=== PATIENT | male | born 1935 | race Caucasian/White ===

== ENCOUNTER 2016-11-04 23:11 | Emergency (ER) | payer MEDICARE, OTHER ==
[2016-11-04] MEDS ORDERED: Sodium Polystyrene Sulfonate 15 GM/60 ML Susp 473 ML Bottle PO ONE (23:33)
[2016-11-04] MEDS: Sodium Polystyrene Sulfonate 15 GM/60 ML Susp 60 ML Bot ONE ×2 (23:52→23:55)
--- NOTE | 2016-11-05 00:15 | EDM.PDOC ---
ED HPI GENERAL MEDICAL PROBLEM - General Chief Complaint: General Stated Complaint: HIGH POTASSUIM Time Seen by Provider: 11/04/16 23:55 Source of Information: Reports: Patient History Limitations: Reports: No limitations - History of Present Illness INITIAL COMMENTS - FREE TEXT/NARRATIVE: 81 yo male had a potassium check in the clinic yesterday afternoon(). Tonight at 10:30 pm Luther got a call from one of the [facility] telling him his K was 6.2 and that he needed to go into the ER to be checked. He has no complaints at this time. 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: Reports: Other (see below) (none) - Related Data Allergies Allergy/AdvReac Type Severity Reaction Status Date / Time No Known Allergies Allergy Verified 11/04/16 23:25 Home Meds: Home Meds Albuterol Sulfate [Proair Hfa] 2 puff IH Q6H PRN 08/16/14 [History] Budesonide [Pulmicort] 0.5 mg IH BID 08/16/14 [History] Calcium Carbonate/Vitamin D3 [Calcium 600 + Vit D Tablet] 1 tab PO DAILY [History] Dutasteride [Avodart] 0.5 mg PO BEDTIME 08/16/14 [History] Ferrous Sulfate 324 mg PO BIDM 08/16/14 [History] Lisinopril 2.5 mg PO BEDTIME 08/16/14 [History] Multivitamin [Multivitamins] 1 cap PO DAILY 08/16/14 [History] Nitroglycerin [Nitrolingual] 1 spray SL ASDIRECTED PRN 08/16/14 [History] Omeprazole [Prilosec] 20 mg PO DAILY PRN 08/16/14 [History] Sertraline HCl [Zoloft] 50 mg PO DAILY 08/16/14 [History] Simvastatin [Zocor] 40 mg PO BEDTIME 08/16/14 [History] Spironolactone [Aldactone] 12.5 mg PO DAILY 08/16/14 [History] Tamsulosin [Flomax] 0.4 mg PO BEDTIME 08/16/14 [History] Ubidecarenone [Coenzyme Q10] 200 mg PO DAILY 08/16/14 [History] Albuterol/Ipratropium [DuoNeb 3.0-0.5 MG/3 ML] 3 ml INH QID PRN 08/03/15 [ History] Aspirin 81 mg PO DAILY 08/03/15 [History] [place] 3,900 mg PO DAILY 09/06/16 [History] Docusate Sodium [Colace] 100 mg PO DAILY PRN 09/06/16 [History] Formoterol [Perforomist] 1 vial NEB BID 09/06/16 [History] Hydrocodone/Acetaminophen [[place] 10-325 Tablet] 0.5 each PO Q6H PRN 09/06/16 [ History] L.acidoph,Paracasei, B.lactis [Probiotic] 1 each PO DAILY 09/06/16 [History] Psyllium [Metamucil] 1 gm PO DAILY PRN 09/06/16 [History] Sertraline [Zoloft] 100 mg PO BEDTIME 09/06/16 [History] Tiotropium [Spiriva Handihaler] 1 cap INH DAILY 09/06/16 [History] ALPRAZolam [Xanax] 0.25 mg PO TID PRN 09/07/16 [History] Multivit-Min/FA/Lutein/Zeaxant [Macular Vitamin Tablet] 1 each PO DAILY [History] Torsemide 20 mg PO BEDTIME 09/07/16 [History] Torsemide 40 mg PO DAILY 09/07/16 [History] Past Medical History HEENT History: Reports: Impaired vision, Macular degeneration Other HEENT History: recent nose bleeds with cautery Cardiovascular History: Reports: Afib, Bypass, CAD, Cardiomyopathy, Heart Failure, Heart murmur, Pulmonary hypertension Respiratory History: Reports: Asthma, COPD, Pneumonia, recurrent Other Respiratory History: Is on O2 @ 2.5L/NC Gastrointestinal History: Reports: Chronic constipation Genitourinary History: Reports: BPH Musculoskeletal History: Reports: Back pain, chronic Psychiatric History: Reports: Anxiety Hematologic History: Reports: Blood transfusion(s) - Infectious Disease History Infectious Disease History: Reports: Chicken pox, Measles, Mumps - Past Surgical History HEENT Surgical History: Reports: Cataract surgery Other HEENT Surgeries/Procedures: bilat cataract Cardiovascular Surgical History: Reports: Coronary artery bypass, Coronary artery stent GI Surgical History: Reports: Appendectomy, Cholecystectomy, Hernia repair/other Musculoskeletal Surgical History: Reports: Other (see below) Other Musculoskeletal Surgeries/Procedures:: back surg x3 Social & Family History - Family History Family Medical History: Noncontributory - Tobacco Use Smoking Status *Q: Never Smoker Years of Tobacco use: 40 Used Tobacco, but Quit: Yes Month Tobacco Last Used: 16yrs ago Second Hand Smoke Exposure: No - Caffeine Use Caffeine Use: Reports: Coffee Caffeine Use Comment: 1-2 cups of coffee daily - Alcohol Use Days Per Week of Alcohol Use: 0 - Recreational Drug Use Recreational Drug Use: No ED ROS GENERAL - Review of Systems Review Of Systems: See Below Cardiovascular: Reports: No symptoms Neurological: Reports: No Symptoms ED EXAM, GENERAL - Physical Exam Exam: See Below Exam Limited By: No limitations General Appearance: alert, WD/WN, no apparent distress Cardiovascular: regular rate, rhythm Neurological: alert, oriented, CN II-XII intact, normal cognition, no motor/ sensory deficits Psychiatric: normal affect, normal mood Skin Exam: Warm, Dry, Intact Course - Vital Signs Text/Narrative:: Kayexalate 30 gm po Last Recorded V/S: Last Vital Signs Temp 36.7 C 11/04/16 23:15 Pulse 70 11/04/16 23:15 Resp 20 11/04/16 23:15 BP 127/65 11/04/16 23:15 Pulse Ox 97 11/04/16 23:15 - Orders/Labs/Meds Labs: Laboratory Tests 11/04/16 Range/Units 23:45 Potassium 4.5 (3.5-5.3) mmol/L Meds: Medications Discontinued Medications Generic Name Dose Route Start Last Admin Trade Name Freq PRN Reason Stop Dose Admin Sodium Polystyrene Sulfonate 30 gm 11/04/16 23:33 11/04/16 23:56 Kayexalate PO 11/04/16 23:34 Not Given NOW ONE Sodium Polystyrene Sulfonate Confirm 11/04/16 23:45 11/04/16 23:55 Kayexalate Administered 11/04/16 23:46 30 gm Dose Administration 30 gm .ROUTE .STK-MED ONE Departure - Departure Time of Disposition: 00:13 Disposition: Home, Self-Care 01 Condition: good Clinical Impression: Laboratory test Referrals: Barbara Schaffer INVESTIGATION SPECIALIST [Primary Care Provider] - Forms: ED Department Discharge Additional Instructions: Resume your usual medications as before. Recheck in the clinic as directed.
[2016-11-05 00:30] VITALS: BP 126/79
== END 2016-11-05 00:25 | disposition home or self-care (01) ==
LOC: FB.ED 23:11
DX: Z04.9 Encounter for examination and observation for unspecified reason (principal)
CPT/HCPCS: 36415; 84132; 99283; A9270

== ENCOUNTER 2017-01-04 20:28 | Inpatient (IN) | payer MEDICARE, OTHER ==
[2017-01-04] MEDS ORDERED: methylPREDNISolone Sodium Succinate 125 MG/2 ML SDV IVPUSH ONE (20:51)
[2017-01-04] MEDS: Sodium Chloride 0.9% 10 ML Syringe FLUSH PRN (20:51)
[2017-01-04] MEDS ORDERED: Albuterol/Ipratropium 3.0-0.5 MG/3 ML Neb Soln NEB ONE (21:18)
--- NOTE | 2017-01-04 21:39 | EDM.PDOC ---
ED HPI GENERAL MEDICAL PROBLEM - General Chief Complaint: Respiratory Problem Stated Complaint: COPD Time Seen by Provider: 01/04/17 20:43 Source of Information: Reports: Patient, Family History Limitations: Reports: Respiratory Distress - History of Present Illness INITIAL COMMENTS - FREE TEXT/NARRATIVE: 81 y.o.w.m.with h/o COPD came to the ED due to worsening SOB. Pt was seen in the clinic for same. Pt quit smoking 17 years ago. has chronic legedema. no F/C/ N/V/D, no chest pain. Pt is a poor historian. Onset: Gradual Onset Date: 01/02/17 Onset Time: 08:00 Duration: Day(s): Location: Reports: Chest Severity: Moderate Improves with: Reports: Medication Worsens with: Reports: Movement - Related Data Allergies Allergy/AdvReac Type Severity Reaction Status Date / Time No Known Allergies Allergy Verified 01/04/17 20:42 Home Meds: Home Meds Albuterol Sulfate [Proair Hfa] 2 puff IH Q6H PRN 08/16/14 [History] Budesonide [Pulmicort] 0.5 mg IH BID 08/16/14 [History] Calcium Carbonate/Vitamin D3 [Calcium 600 + Vit D Tablet] 1 tab PO DAILY [History] Dutasteride [Avodart] 0.5 mg PO BEDTIME 08/16/14 [History] Ferrous Sulfate 324 mg PO BIDM 08/16/14 [History] Multivitamin [Multivitamins] 1 cap PO DAILY 08/16/14 [History] Nitroglycerin [Nitrolingual] 1 spray SL Q5M PRN 08/16/14 [History] Omeprazole [Prilosec] 20 mg PO DAILY PRN 08/16/14 [History] Simvastatin [Zocor] 40 mg PO BEDTIME 08/16/14 [History] Spironolactone [Aldactone] 12.5 mg PO DAILY 08/16/14 [History] Tamsulosin [Flomax] 0.4 mg PO BEDTIME 08/16/14 [History] Aspirin 81 mg PO DAILY 08/03/15 [History] Formoterol [Perforomist] 1 vial NEB BID 09/06/16 [History] Hydrocodone/Acetaminophen [[place] 10-325 Tablet] 0.5 each PO Q6H PRN 09/06/16 [ History] L.acidoph,Paracasei, B.lactis [Probiotic] 1 each PO DAILY 09/06/16 [History] Sertraline [Zoloft] 100 mg PO BID 09/06/16 [History] Tiotropium [Spiriva Handihaler] 1 cap INH DAILY 09/06/16 [History] ALPRAZolam [Xanax] 0.125 mg PO TID PRN 09/07/16 [History] Torsemide 40 mg PO DAILY 09/07/16 [History] Cefuroxime [Ceftin] 500 mg PO Q12HR 01/04/17 [History] Warfarin Sodium 2 mg PO MOFR 01/04/17 [History] Warfarin Sodium 4 mg PO SUTUWETHSA 01/04/17 [History] Polyethylene Glycol 3350 [MiraLAX] 17 gm PO DAILY 01/05/17 [History] Past Medical History HEENT History: Reports: Impaired Vision, Macular Degeneration Other HEENT History: recent nose bleeds with cautery Cardiovascular History: Reports: Afib, Bypass, CAD, Cardiomyopathy, Heart Failure, Heart Murmur, Pulmonary Hypertension Respiratory History: Reports: Asthma, COPD, Pneumonia, Recurrent Other Respiratory History: Is on O2 @ 2.5L/NC Gastrointestinal History: Reports: Chronic Constipation Genitourinary History: Reports: BPH Musculoskeletal History: Reports: Back Pain, Chronic Psychiatric History: Reports: Anxiety Hematologic History: Reports: Blood Transfusion(s) - Infectious Disease History Infectious Disease History: Reports: Chicken Pox, Measles, Mumps - Past Surgical History HEENT Surgical History: Reports: Cataract Surgery Cardiovascular Surgical History: Reports: Coronary Artery Bypass, Coronary Artery Stent GI Surgical History: Reports: Appendectomy, Cholecystectomy, Hernia Repair/Other Musculoskeletal Surgical History: Reports: Other (See Below) Social & Family History - Family History Family Medical History: Noncontributory - Tobacco Use Smoking Status *Q: Former Smoker Years of Tobacco use: 40 Used Tobacco, but Quit: Yes Month Tobacco Last Used: 20 years ago Second Hand Smoke Exposure: No - Caffeine Use Caffeine Use: Reports: Coffee, Soda, Tea Caffeine Use Comment: 1-2 cups of coffee daily - Alcohol Use Days Per Week of Alcohol Use: 0 - Recreational Drug Use Recreational Drug Use: No ED ROS GENERAL - Review of Systems Review Of Systems: See Below Constitutional: Reports: Weight Loss HEENT: Reports: No Symptoms Respiratory: Reports: Shortness of Breath Cardiovascular: Reports: Dyspnea on Exertion, Orthopnea Endocrine: Reports: No Symptoms GI/Abdominal: Reports: No Symptoms : Reports: No Symptoms Musculoskeletal: Reports: No Symptoms Skin: Reports: No Symptoms Neurological: Reports: No Symptoms Psychiatric: Reports: No Symptoms Hematologic/Lymphatic: Reports: No Symptoms Immunologic: Reports: No Symptoms ED EXAM, GENERAL - Physical Exam Exam: See Below Exam Limited By: Respiratory Distress General Appearance: Alert, Moderate Distress, Cachetic Eye Exam: Bilateral Eye: Normal Inspection Nose: Normal Inspection, Normal Mucosa Throat/Mouth: Normal Inspection Head: Atraumatic, Normocephalic Neck: Normal Inspection Respiratory/Chest: Respiratory Distress, Decreased Breath Sounds, Crackles, Rales, Wheezing, Accessory Muscle Use Cardiovascular: JVD, Gallop/S3 Peripheral Pulses: 1+: Radial (R), Femoral (L) GI/Abdominal: Normal Bowel Sounds, Distended (chronic) (Male) Exam: No Hernia Rectal (Males) Exam: Deferred Back Exam: Normal Inspection, Full Range of Motion Extremities: Pedal Edema (chronic, bilat) Neurological: Alert, Oriented, CN II-XII Intact, Normal Cognition Psychiatric: Normal Affect, Normal Mood Skin Exam: Pallor Lymphatic: No Adenopathy EKG INTERPRETATION EKG Date: 01/04/17 Time: 20:55 Rate (beats/min): 89 [place]: normal P-wave: absent QRS: normal ST-T: normal QT: normal Comparison: NA - no prior EKG Course - Vital Signs Text/Narrative:: 81 y.o.w.m.with h/o COPD came to the ED due to worsening SOB. Pt was seen in the clinic for same. Pt quit smoking 17 years ago. has chronic legedema. no F/C/ N/V/D, no chest pain. Pt is a poor historian. PE: Cachectic 81 y.o.w.m with SOB. Crackles, poor air movement ImagingL Pulm edema, atelectasis, COPD Labs: WBC 3.4 INR 3.0 (pt is on coumadin) Troponin 0.07, BNP 345, Impression: COPD exacerbation, CHF/Pulmonary edema, atelectasis, A fib wit NVR. Full code Tx: Duoneb, solu medrol, lasix Reexam: Improved Plan: admit to ICU to Dr. Lee Last Recorded V/S: Last Vital Signs Temp 36.3 C 01/07/17 16:00 Pulse 73 01/07/17 17:48 Resp 20 01/07/17 16:00 BP 109/66 01/07/17 17:48 Pulse Ox 92 L 01/07/17 16:00 - Orders/Labs/Meds Orders: Medication Orders Albuterol (Proventil Neb Soln) 2.5 mg NEB QIDRT [facility] Last Admin: 01/07/17 15:10 Dose: 2.5 mg Admin: 01/07/17 10:52 Dose: 2.5 mg Admin: 01/07/17 07:05 Dose: 2.5 mg Admin: 01/06/17 20:03 Dose: 2.5 mg Admin: 01/06/17 15:06 Dose: 2.5 mg Admin: 01/06/17 10:48 Dose: 2.5 mg Admin: 01/06/17 06:29 Dose: 2.5 mg Admin: 01/05/17 20:37 Dose: 2.5 mg Admin: 01/05/17 15:12 Dose: 2.5 mg Albuterol (Proventil Neb Soln) 2.5 mg NEB Q4H PRN PRN Reason: wheezing or SOB Alprazolam (Xanax) 0.25 mg PO TID PRN PRN Reason: Anxiety Aspirin (Aspirin) 81 mg PO DAILY [facility] Last Admin: 01/07/17 08:35 Dose: 81 mg Admin: 01/06/17 08:44 Dose: 81 mg Admin: 01/05/17 10:49 Dose: 81 mg Budesonide (Pulmicort) 0.5 mg INH BIDRT [facility] Last Admin: 01/07/17 07:05 Dose: 0.5 mg Admin: 01/06/17 20:05 Dose: 0.5 mg Admin: 01/06/17 06:29 Dose: 0.5 mg Admin: 01/05/17 20:36 Dose: 0.5 mg Admin: 01/05/17 11:02 Dose: 0.5 mg Carvedilol (Coreg) 3.125 mg PO BIDMEALS [facility] Last Admin: 01/07/17 17:48 Dose: 3.125 mg Admin: 01/07/17 09:15 Dose: 3.125 mg Dutasteride (Avodart) 0.5 mg PO BEDTIME [facility] Last Admin: 01/06/17 20:07 Dose: 0.5 mg Admin: 01/05/17 20:35 Dose: 0.5 mg Ferrous Sulfate (Ferrous Sulfate) 325 mg PO BIDMEALS [facility] Last Admin: 01/07/17 17:48 Dose: 325 mg Admin: 01/07/17 08:34 Dose: 325 mg Admin: 01/06/17 17:34 Dose: 325 mg Admin: 01/06/17 08:44 Dose: 325 mg Admin: 01/05/17 17:52 Dose: 325 mg Admin: 01/05/17 10:51 Dose: 325 mg Furosemide (Lasix) 40 mg IVPUSH DAILY [facility] Last Admin: 01/07/17 09:19 Dose: 40 mg Sodium Chloride (Normal Saline) 250 mls @ 100 mls/hr IV ASDIRECTED [facility] Last Admin: 01/07/17 10:10 Dose: 100 mls/hr Levofloxacin/Dextrose (Levaquin In D5w 250 Mg/50 Ml) 50 mls @ 50 mls/hr IV Q24H [facility] Sodium Chloride (Normal Saline) 1,000 mls @ 50 mls/hr IV ASDIRECTED [facility] Last Admin: 01/07/17 17:30 Dose: 50 mls/hr Methylprednisolone Sodium Succinate (Solu-Medrol) 40 mg IVPUSH Q8H [facility] Last Admin: 01/07/17 16:33 Dose: 40 mg Admin: 01/07/17 09:15 Dose: 40 mg Omeprazole (Omeprazole) 20 mg PO DAILY PRN PRN Reason: Heartburn Polyethylene Glycol (Miralax) 17 gm PO DAILY [facility] Sertraline HCl (Zoloft) 100 mg PO BID [facility] Last Admin: 01/07/17 08:37 Dose: 100 mg Admin: 01/06/17 20:08 Dose: 100 mg Admin: 01/06/17 08:44 Dose: 100 mg Admin: 01/05/17 20:37 Dose: 100 mg Admin: 01/05/17 10:51 Dose: 100 mg Simvastatin (Zocor) 40 mg PO BEDTIME [facility] Last Admin: 01/06/17 20:08 Dose: 40 mg Admin: 01/05/17 20:36 Dose: 40 mg Sodium Chloride (Saline Flush) 10 ml FLUSH ASDIRECTED PRN PRN Reason: Keep Vein Open Last Admin: 01/07/17 09:19 Dose: 10 ml Admin: 01/06/17 16:16 Dose: 10 ml Admin: 01/06/17 05:16 Dose: 10 ml Admin: 01/05/17 17:59 Dose: 10 ml Admin: 01/05/17 13:53 Dose: 10 ml Admin: 01/05/17 08:29 Dose: 10 ml Admin: 01/05/17 00:03 Dose: 10 ml Admin: 01/04/17 20:51 Dose: 10 ml Sodium Chloride (Saline Flush) 10 ml FLUSH ASDIRECTED PRN PRN Reason: Keep Vein Open Spironolactone (Aldactone) 12.5 mg PO DAILY [facility] Last Admin: 01/07/17 08:34 Dose: 12.5 mg Admin: 01/06/17 08:44 Dose: 12.5 mg Admin: 01/05/17 10:49 Dose: 12.5 mg Tamsulosin HCl (Flomax) 0.4 mg PO BEDTIME [facility] Last Admin: 01/06/17 20:07 Dose: 0.4 mg Admin: 01/05/17 20:35 Dose: 0.4 mg Tiotropium [place] (Spiriva Handihaler) 18 mcg INH DAILY [facility] Last Admin: 01/07/17 08:35 Dose: 1 cap Admin: 01/06/17 08:44 Dose: 1 cap Admin: 01/05/17 10:52 Dose: 1 cap Warfarin Sodium (Coumadin) 2 mg PO MoFr@1600 [facility] Warfarin Sodium (Coumadin Sliding Scale) 0 each PO ASDIRECTED [facility] Warfarin Sodium (Coumadin) 4 mg PO SuTuWeThSa@1600 [facility] Labs: Laboratory Tests 01/04/17 01/04/17 01/04/17 Range/Units 21:05 21:05 21:05 WBC 4.8 (4.5-12.0) X10-3/uL RBC 3.10 L (4.30-5.75) x10(6)uL Hgb 10.1 L (11.5-15.5) g/dL Hct 31.0 (30.0-51.3) % MCV 99.9 H (80-96) fL MCH 32.6 (27.7-33.6) pg MCHC 32.6 (32.2-35.4) g/dL RDW 14.4 (11.5-15.5) % Plt Count 78 L (125-369) X10(3)uL MPV 8.0 (7.4-10.4) fL Add Manual Diff Yes Neutrophils % (Manual) 83 H (46-82) % Band Neutrophils % 2 (0-6) % Lymphocytes % (Manual) 6 L (13-37) % Monocytes % (Manual) 9 (4-12) % PT 31.3 H (8.7-11.1) INR 3.03 H (0.89-1.13) Sodium 134 L (135-145) mmol/L Potassium 3.2 L D (3.5-5.3) mmol/L Chloride 98 L D (100-110) mmol/L Carbon Dioxide 27 (23-29) mmol/L BUN 49 H (8-23) mg/dL Creatinine 1.1 (0.6-1.3) mg/dL Est Cr Clr Drug Dosing 46.72 mL/min Estimated GFR (MDRD) > 60 (>60) BUN/Creatinine Ratio 44.5 H (9-20) Glucose 111 (80-116) mg/dL Calcium 8.7 (8.6-10.2) mg/dL Troponin I (0.02-0.06) NG/ML B-Natriuretic Peptide (0-100) pg/mL 01/04/17 01/04/17 Range/Units 21:05 21:05 WBC (4.5-12.0) X10-3/uL RBC (4.30-5.75) x10(6)uL Hgb (11.5-15.5) g/dL Hct (30.0-51.3) % MCV (80-96) fL MCH (27.7-33.6) pg MCHC (32.2-35.4) g/dL RDW (11.5-15.5) % Plt Count (125-369) X10(3)uL MPV (7.4-10.4) fL Add Manual Diff Neutrophils % (Manual) (46-82) % Band Neutrophils % (0-6) % Lymphocytes % (Manual) (13-37) % Monocytes % (Manual) (4-12) % PT (8.7-11.1) INR (0.89-1.13) Sodium (135-145) mmol/L Potassium (3.5-5.3) mmol/L Chloride (100-110) mmol/L Carbon Dioxide (23-29) mmol/L BUN (8-23) mg/dL Creatinine (0.6-1.3) mg/dL Est Cr Clr Drug Dosing mL/min Estimated GFR (MDRD) (>60) BUN/Creatinine Ratio (9-20) Glucose (80-116) mg/dL Calcium (8.6-10.2) mg/dL Troponin I 0.07 H (0.02-0.06) NG/ML B-Natriuretic Peptide 353 H (0-100) pg/mL Meds: Medications Generic Name Dose Route Start Last Admin Trade Name Freq PRN Reason Stop Dose Admin Albuterol 2.5 mg 01/05/17 16:00 01/07/17 15:10 Proventil Neb Soln NEB 2.5 mg QIDRT [facility] Administration Albuterol 2.5 mg 01/05/17 13:19 Proventil Neb Soln NEB Q4H PRN wheezing or SOB Alprazolam 0.25 mg 01/07/17 10:15 Xanax PO TID PRN Anxiety Aspirin 81 mg 01/05/17 09:30 01/07/17 08:35 Aspirin PO 81 mg DAILY [facility] Administration Budesonide 0.5 mg 01/05/17 09:30 01/07/17 07:05 Pulmicort INH 0.5 mg BIDRT [facility] Administration Carvedilol 3.125 mg 01/07/17 09:00 01/07/17 17:48 Coreg PO 3.125 mg BIDMEALS [facility] Administration Dutasteride 0.5 mg 01/05/17 21:00 01/06/17 20:07 Avodart PO 0.5 mg BEDTIME [facility] Administration Ferrous Sulfate 325 mg 01/05/17 10:30 01/07/17 17:48 Ferrous Sulfate PO 325 mg BIDMEALS A[facility] Administration Furosemide 40 mg 01/07/17 09:00 01/07/17 09:19 Lasix IVPUSH 40 mg DAILY [facility] Administration Sodium Chloride 250 mls @ 100 mls/hr 01/07/17 10:15 01/07/17 10:10 Normal Saline IV 100 mls/hr ASDIRECTED [facility] Administration Levofloxacin/Dextrose 50 mls @ 50 mls/hr 01/08/17 10:00 Levaquin In D5w 250 Mg/50 Ml IV Q24H [facility] Sodium Chloride 1,000 mls @ 50 mls/hr 01/07/17 11:15 01/07/17 17:30 Normal Saline IV 50 mls/hr ASDIRECTED [facility] Administration Methylprednisolone Sodium Succinate 40 mg 01/07/17 09:00 01/07/17 16:33 Solu-Medrol IVPUSH 40 mg Q8H [facility] Administration Omeprazole 20 mg 01/05/17 09:22 Omeprazole PO DAILY PRN Heartburn Polyethylene Glycol 17 gm 01/08/17 09:00 Miralax PO DAILY [facility] Sertraline HCl 100 mg 01/05/17 09:30 01/07/17 08:37 Zoloft PO 100 mg BID [facility] Administration Simvastatin 40 mg 01/05/17 21:00 01/06/17 20:08 Zocor PO 40 mg BEDTIME [facility] Administration Sodium Chloride 10 ml 01/04/17 20:42 01/07/17 09:19 Saline Flush FLUSH 10 ml ASDIRECTED PRN Administration Keep Vein Open Sodium Chloride 10 ml 01/04/17 22:00 Saline Flush FLUSH ASDIRECTED PRN Keep Vein Open Spironolactone 12.5 mg 01/05/17 09:30 01/07/17 08:34 Aldactone PO 12.5 mg DAILY [facility] Administration Tamsulosin HCl 0.4 mg 01/05/17 21:00 01/06/17 20:07 Flomax PO 0.4 mg BEDTIME [facility] Administration Tiotropium [place] 18 mcg 01/05/17 09:30 01/07/17 08:35 Spiriva Handihaler INH 1 cap DAILY [facility] Administration Warfarin Sodium 2 mg 01/07/17 16:00 Coumadin PO MoFr@1600 [facility] Warfarin Sodium 0 each 01/07/17 08:45 Coumadin Sliding Scale PO ASDIRECTED [facility] Warfarin Sodium 4 mg 01/08/17 16:00 Coumadin PO SuTuWeThSa@1600 [facility] Discontinued Medications Generic Name Dose Route Start Last Admin Trade Name Freq PRN Reason Stop Dose Admin Albuterol 2.5 mg 01/04/17 22:15 01/05/17 10:06 Proventil Neb Soln NEB 2.5 mg Q4H [facility] Administration Albuterol/Ipratropium 3 ml 01/04/17 21:18 01/04/17 21:23 Duoneb 3.0-0.5 Mg/3 Ml NEB 01/04/17 21:19 3 ml ONETIME ONE Administration Furosemide 10 mg 01/05/17 09:00 Lasix IVPUSH DAILY [facility] Furosemide 10 mg 01/04/17 23:03 01/05/17 00:03 Lasix IVPUSH 01/04/17 23:04 10 mg NOW ONE Administration Furosemide 20 mg 01/05/17 08:09 01/05/17 08:29 Lasix IVPUSH 01/05/17 08:10 20 mg ONETIME ONE Administration Furosemide 20 mg 01/05/17 14:00 01/05/17 13:53 Lasix IVPUSH 01/05/17 14:01 20 mg ONETIME ONE Administration Furosemide 20 mg 01/06/17 09:30 01/07/17 10:21 Lasix PO Not Given BIDDIURETIC [facility] Levofloxacin/Dextrose 500 mg/ 100 mls @ 100 mls/hr 01/07/17 10:00 01/07/17 10 :10 Premix IV 100 mls/hr Q24H [facility] Administration Methylprednisolone Sodium Succinate 125 mg 01/04/17 20:51 01/04/17 20:56 Solu-Medrol IVPUSH 01/04/17 20:52 125 mg ONETIME ONE Administration Methylprednisolone Sodium Succinate 125 mg 01/05/17 09:30 01/06/17 01:00 Solu-Medrol IVPUSH 125 mg Q8H [facility] Administration Ondansetron HCl 4 mg 01/04/17 22:00 Zofran IV Q4H PRN Nausea/Vomiting Prednisone 20 mg 01/06/17 09:30 01/07/17 10:21 Prednisone PO Not Given BIDMEALS [facility] Psyllium Hydrophilic Mucilloid 0.52 gm 01/05/17 09:30 01/07/17 08:38 Metamucil PO 0.52 gm DAILY [facility] Administration Warfarin Sodium 4 mg 01/05/17 16:00 01/05/17 16:19 Coumadin PO 4 mg SuTuWeThSa@1600 [facility] Administration Departure - Departure Time of Disposition: 13:00 Disposition: Admitted As Inpatient 65 Condition: fair Clinical Impression: Urinary retention - Discharge Information
[2017-01-04] MEDS ORDERED: Sodium Chloride 0.9% 10 ML Syringe FLUSH PRN (22:00)
[2017-01-04] MEDS ORDERED: Ondansetron 4 MG/2 ML SDV IV PRN (22:00)
[2017-01-04] MEDS: Albuterol 0.083% 2.5 MG/3 ML Neb Soln NEB SCH (22:35)
[2017-01-04] MEDS ORDERED: Furosemide 20 MG/2 ML VIAL IVPUSH ONE (23:03)
[2017-01-05] MEDS: Sodium Chloride 0.9% 10 ML Syringe FLUSH PRN ×4 (00:03→17:59)
[2017-01-05] MEDS: Albuterol 0.083% 2.5 MG/3 ML Neb Soln NEB SCH ×5 (02:05→20:37)
[2017-01-05] MEDS ORDERED: Furosemide 20 MG/2 ML VIAL IVPUSH ONE ×2 (08:09→14:00)
[2017-01-05] MEDS ORDERED: Furosemide 40 MG/4 ML VIAL IVPUSH SCH (09:00)
--- NOTE | 2017-01-05 09:17 | PCM.HP ---
H&P History of Present Illness - General Date of Service: 01/05/17 Admit Problem/Dx: Admission Diagnosis/Problem Admission Diagnosis/Problem Pulmonary edema Source of Information: Patient, Old Records History Limitations: Reports: Altered Mental Status - History of Present Illness Initial Comments - Free Text/Narative: 81-year-old male brought in because of worsening shortness of breath , apparently for few days. He is a poor historian and difficult to obtain history from. He uses oxygen 2 L daily continuously because of COPD and a history of CHF,but is now on 4 L. The shortness of breath is worsened with exertion, and associated with a productive cough.He however denies any chest pain, fever or chills. He also has chronic bilateral leg swelling which isn't worsened but has improved this morning; he was admitted last night. - Related Data Allergies/Adverse Reactions: Allergies Allergy/AdvReac Type Severity Reaction Status Date / Time No Known Allergies Allergy Verified 01/04/17 20:42 Home Medications: Home Meds Albuterol Sulfate [Proair Hfa] 2 puff IH Q6H PRN 08/16/14 [History] Budesonide [Pulmicort] 0.5 mg IH BID 08/16/14 [History] Calcium Carbonate/Vitamin D3 [Calcium 600 + Vit D Tablet] 1 tab PO DAILY [History] Dutasteride [Avodart] 0.5 mg PO BEDTIME 08/16/14 [History] Ferrous Sulfate 324 mg PO BIDM 08/16/14 [History] Multivitamin [Multivitamins] 1 cap PO DAILY 08/16/14 [History] Nitroglycerin [Nitrolingual] 1 spray SL ASDIRECTED PRN 08/16/14 [History] Omeprazole [Prilosec] 20 mg PO DAILY PRN 08/16/14 [History] Simvastatin [Zocor] 40 mg PO BEDTIME 08/16/14 [History] Spironolactone [Aldactone] 12.5 mg PO DAILY 08/16/14 [History] Tamsulosin [Flomax] 0.4 mg PO BEDTIME 08/16/14 [History] Aspirin 81 mg PO DAILY 08/03/15 [History] Formoterol [Perforomist] 1 vial NEB BID 09/06/16 [History] Hydrocodone/Acetaminophen [Hungerford 10-325 Tablet] 0.5 each PO Q6H PRN 09/06/16 [ History] L.acidoph,Paracasei, B.lactis [Probiotic] 1 each PO DAILY 09/06/16 [History] Sertraline [Zoloft] 100 mg PO BID 09/06/16 [History] Tiotropium [Spiriva Handihaler] 1 cap INH DAILY 09/06/16 [History] ALPRAZolam [Xanax] 0.25 mg PO TID PRN 09/07/16 [History] Torsemide 40 mg PO DAILY 09/07/16 [History] Cefuroxime [Ceftin] 500 mg PO Q12HR 01/04/17 [History] Psyllium [Metamucil] 1 gm PO DAILY 01/04/17 [History] Warfarin Sodium 2 mg PO MOFR 01/04/17 [History] Warfarin Sodium 4 mg PO SUTUWETHSA 01/04/17 [History] Past Medical History HEENT History: Reports: Impaired Vision, Macular Degeneration Other HEENT History: recent nose bleeds with cautery Cardiovascular History: Reports: Afib, Bypass, CAD, Cardiomyopathy, Heart Failure, Heart Murmur, Pulmonary Hypertension Respiratory History: Reports: Asthma, COPD, Pneumonia, Recurrent Other Respiratory History: Is on O2 @ 2.5L/NC Gastrointestinal History: Reports: Chronic Constipation Other Gastrointestinal History: takes Miralax daily Genitourinary History: Reports: BPH Musculoskeletal History: Reports: Back Pain, Chronic Neurological History: Reports: Other (See Below) Other Neuro History: drop foot. states he had a seizure years ago "when he was drinking" Psychiatric History: Reports: Anxiety Hematologic History: Reports: Blood Transfusion(s) - Infectious Disease History Infectious Disease History: Reports: Chicken Pox, Measles, Mumps - Past Surgical History HEENT Surgical History: Reports: Cataract Surgery Cardiovascular Surgical History: Reports: Coronary Artery Bypass, Coronary Artery Stent GI Surgical History: Reports: Appendectomy, Cholecystectomy, Hernia Repair/Other Musculoskeletal Surgical History: Reports: Other (See Below) Social & Family History - Family History Family Medical History: Noncontributory - Tobacco Use Smoking Status *Q: Former Smoker Years of Tobacco use: 40 Used Tobacco, but Quit: Yes Month Tobacco Last Used: 20 years ago Second Hand Smoke Exposure: No - Caffeine Use Caffeine Use: Reports: Coffee, Soda, Tea Other Caffeine Use: 3-4 cups per day Caffeine Use Comment: 1-2 cups of coffee daily - Alcohol Use Days Per Week of Alcohol Use: 0 - Recreational Drug Use Recreational Drug Use: No H&P Review of Systems - Review of Systems: Review Of Systems: ROS reveals no pertinent complaints other than HPI. Exam - Exam Exam: See Below - Vital Signs Vital Signs: Last Vital Signs Temp 98 F 01/05/17 08:00 Pulse 82 01/05/17 04:00 Resp 22 H 01/05/17 08:00 BP 103/62 01/05/17 08:00 Pulse Ox 90 L 01/05/17 08:00 Weight: 79.696 kg - Exam Quality Assessment: Supplemental Oxygen General: Alert, Oriented, 4 HEENT: PERRLA, Hearing Intact, Mucosa Moist & [place], Nares Patent, Normal Nasal Septum, Posterior Pharynx Clear, Conjunctiva Clear, EOMI, EACs Clear, TMs Clear Neck: Supple, Trachea Midline, 2 Lungs: Decreased Breath Sounds, Rales Cardiovascular: Regular Rate, Systolic Murmur Abdomen: Normal Bowel Sounds, Soft. No: Tenderness, Splenomegaly (Male) Exam: No Hernia Rectal (Males) Exam: Deferred Back Exam: Normal Inspection, Full Range of Motion, NT Extremities: Edema Skin: Warm Neurological: Cranial Nerves Intact, Reflexes Equal Bilateral Neuro Extensive - Mental Status: Alert, Oriented x3, Normal Mood/Affect, Normal Cognition, Disorientation to Time Neuro Extensive - Motor, Sensory, Reflexes: CN II-XII Intact, Normal Gait, Normal Reflexes, Tremor Psychiatric: Alert, Normal Affect, Normal Mood - Patient Data Result Diagrams: 01/04/17 21:05 01/04/17 21:05 Imaging Impressions last 24 hrs: Reviewed the images independently. His chest x-ray shows bilateral pleural effusions worse on the left. Am unable to clearly rule out pneumonia but there is some evidence of congestive heart failure. EKG INTERPRETATION Rhythm: a-fib *Q Meaningful Use (ADM) - VTE *Q VTE Criteria *Q: - Stroke *Q Stroke Criteria *Q: - AMI *Q AMI Criteria *Q: - Problem List (1) COPD (chronic obstructive pulmonary disease) SNOMED Code(s): 64526799 ICD Code: J44.9 - CHRONIC OBSTRUCTIVE PULMONARY DISEASE, UNSPECIFIED Status : Acute Current Visit: Yes Qualifiers: COPD type: chronic bronchitis (2) Afib SNOMED Code(s): 02233382 ICD Code: I48.91 - UNSPECIFIED ATRIAL FIBRILLATION Status: Chronic Current Visit: Yes Qualifiers: Atrial fibrillation type: chronic Qualified Code(s): I48.2 - Chronic atrial fibrillation (3) Long-term (current) use of anticoagulants SNOMED Code(s): 867730364 ICD Code: Z79.01 - PRISON (CURRENT) USE OF ANTICOAGULANTS Status: Chronic Priority: Medium Current Visit: Yes (4) Physical deconditioning SNOMED Code(s): 51365772299654 ICD Code: R53.81 - OTHER MALAISE Status: Chronic Priority: High Current Visit: Yes (5) Parkinsonian features SNOMED Code(s): 233194940 ICD Code: R25.9 - UNSPECIFIED ABNORMAL INVOLUNTARY MOVEMENTS Status: Chronic Priority: Medium Current Visit: Yes (6) Dementia SNOMED Code(s): 91728322 ICD Code: F03.90 - UNSPECIFIED DEMENTIA WITHOUT BEHAVIORAL DISTURBANCE Status: Suspected Priority: Medium Current Visit: Yes (7) Palliative care status SNOMED Code(s): 084993754 ICD Code: Z51.5 - ENCOUNTER FOR PALLIATIVE CARE Status: Acute Priority: Medium Current Visit: Yes (8) Congestive cardiomyopathy SNOMED Code(s): 545303143 ICD Code: I42.0 - DILATED CARDIOMYOPATHY Status: Acute Priority: High Current Visit: No (9) Anemia SNOMED Code(s): 160653426 ICD Code: D64.9 - ANEMIA, UNSPECIFIED Status: Chronic Priority: Medium Current Visit: No Qualifiers: Anemia type: unspecified type Qualified Code(s): D64.9 - Anemia, unspecified Problem List Initiated/Reviewed/Updated: Yes Orders Last 24hrs: Active Orders 24 hr Category Date Time Status Patient Status [ADT] Routine ADT 01/04/17 22:03 Active Height and Weight [RC] 06 Care 01/04/17 22:00 Active Intake and Output [RC] 06,14,22 Care 01/04/17 22:05 Active Oxygen Therapy [RC] PRN Care 01/04/17 22:03 Active Pulse Oximetry [RC] CONTINUOUS Care 01/04/17 22:05 Active RT Aerosol Therapy [RC] ASDIRECTED Care 01/04/17 22:08 Active Up With Assistance [RC] ASDIRECTED Care 01/04/17 22:00 Active Urinary Catheter Assessment [RC] QSHIFT Care 01/04/17 22:00 Hold VTE/DVT Education [RC] Per Unit Routine Care 01/04/17 22:03 Active Vital Signs [RC] 08,12,16,20,00,04 Care 01/04/17 22:03 Active Albuterol [Proventil Neb Soln] Med 01/04/17 22:15 Active 2.5 mg NEB Q4H Ondansetron [Zofran] Med 01/04/17 22:00 Active 4 mg IV Q4H PRN Sodium Chloride 0.9% [Saline Flush] Med 01/04/17 22:00 Active 10 ml FLUSH ASDIRECTED PRN Saline Lock Insert [OM.PC] Routine Oth 01/04/17 22:00 Ordered Resuscitation Status Routine Resus Stat 01/04/17 22:00 Ordered Medication Orders Albuterol (Proventil Neb Soln) 2.5 mg NEB Q4H [facility] Last Admin: 01/05/17 06:04 Dose: 2.5 mg Admin: 01/05/17 02:05 Dose: 2.5 mg Admin: 01/04/17 22:35 Dose: Ondansetron HCl (Zofran) 4 mg IV Q4H PRN PRN Reason: Nausea/Vomiting Sodium Chloride (Saline Flush) 10 ml FLUSH ASDIRECTED PRN PRN Reason: Keep Vein Open Last Admin: 01/05/17 08:29 Dose: 10 ml Admin: 01/05/17 00:03 Dose: 10 ml Admin: 01/04/17 20:51 Dose: 10 ml Sodium Chloride (Saline Flush) 10 ml FLUSH ASDIRECTED PRN PRN Reason: Keep Vein Open Assessment/Plan Comment:: The patient will be admitted to the medical floor. We'll continue Lasix,he got 10 mg last night and we'll give him 20 more , IV; this morning. We'll also continue with supplemental oxygen,and nebulized therapy of albuterol and ipratropium. I will plan for physical and occupational therapy to see him for strengthening, and discharge planning. I will repeat electrolytes and a blood count in the morning. He has anemia; possibly chronic.
[2017-01-05] MEDS ORDERED: Omeprazole 20 MG Cap.CR PO PRN (09:22)
[2017-01-05] MEDS: methylPREDNISolone Sodium Succinate 125 MG/2 ML SDV IVPUSH SCH ×2 (10:17→17:53)
[2017-01-05] MEDS ORDERED: Albuterol 0.083% 2.5 MG/3 ML Neb Soln INH SCH (10:30)
[2017-01-05] MEDS: Psyllium 0.52 GM Cap PO SCH (10:49)
[2017-01-05] MEDS: Spironolactone 25 MG Tab PO SCH (10:49)
[2017-01-05] MEDS: Aspirin 81 MG Tab.Chew PO SCH (10:49)
[2017-01-05] MEDS: Ferrous Sulfate 325 MG Tab PO SCH ×2 (10:51→17:52)
[2017-01-05] MEDS: Sertraline 100 MG Tab PO SCH ×2 (10:51→20:37)
[2017-01-05] MEDS: Tiotropium Inhaler 18 MCG Inhalation Powder Cap Kit of 5 INH SCH (10:52)
[2017-01-05] MEDS: Budesonide 0.5 MG/2 ML Neb Susp INH SCH ×2 (11:02→20:36)
[2017-01-05] MEDS ORDERED: Warfarin 4 MG Tab PO SCH (16:00)
[2017-01-05] MEDS: Tamsulosin 0.4 MG Cap.ER PO SCH (20:35)
[2017-01-05] MEDS: Dutasteride 0.5 MG Cap PO SCH (20:35)
[2017-01-05] MEDS: Simvastatin 40 MG Tab PO SCH (20:36)
[2017-01-06] MEDS: methylPREDNISolone Sodium Succinate 125 MG/2 ML SDV IVPUSH SCH (01:00)
[2017-01-06] MEDS: Sodium Chloride 0.9% 10 ML Syringe FLUSH PRN ×2 (05:16→16:16)
[2017-01-06] MEDS: Albuterol 0.083% 2.5 MG/3 ML Neb Soln NEB SCH ×4 (06:29→20:03)
[2017-01-06] MEDS: Budesonide 0.5 MG/2 ML Neb Susp INH SCH ×2 (06:29→20:05)
[2017-01-06] MEDS: Tiotropium Inhaler 18 MCG Inhalation Powder Cap Kit of 5 INH SCH (08:44)
[2017-01-06] MEDS: Spironolactone 25 MG Tab PO SCH (08:44)
[2017-01-06] MEDS: Ferrous Sulfate 325 MG Tab PO SCH ×2 (08:44→17:34)
[2017-01-06] MEDS: Sertraline 100 MG Tab PO SCH ×2 (08:44→20:08)
[2017-01-06] MEDS: Psyllium 0.52 GM Cap PO SCH (08:44)
[2017-01-06] MEDS: Aspirin 81 MG Tab.Chew PO SCH (08:44)
[2017-01-06] MEDS: Furosemide 20 MG Tab PO SCH ×2 (09:45→14:00)
[2017-01-06] MEDS: predniSONE 20 MG Tab PO SCH ×2 (09:45→17:34)
--- NOTE | 2017-01-06 12:18 | PN ---
DATE SEEN: 01/06/2017 SUBJECTIVE: Shortness of breath. HISTORY OF PRESENT ILLNESS: An 81-year-old male, who was brought in because of shortness of breath and found to have congestive heart failure and chronic obstructive pulmonary disease exacerbation. Overnight, he felt better. He still has a mild cough, but is extremely short of breath on any ambulation and very weak without support. REVIEW OF SYSTEMS: No fever or chills. ALLERGIES: None. PHYSICAL EXAMINATION: GENERAL: He is pleasant and alert. VITAL SIGNS: Blood pressure 107/58, and pulse is 87, oxygenation 94% on 2.5 L of oxygenation. EARS, NOSE, AND THROAT: Negative. NECK: Supple. CARDIOVASCULAR: Irregular heart rate. RESPIRATORY: Diminished breath sounds bilaterally. EXTREMITIES: Marked pitting edema. NEUROLOGIC: No focal findings. LABORATORY DATA: This morning INR is 4.0 and sodium 136, creatinine is 1.3. Electrolytes are normal. AST and ALT are slightly elevated. White cell count is 2.8 and hemoglobin 9.4. IMPRESSIONS: 1. Congestive heart failure exacerbation. 2. Chronic obstructive pulmonary disease exacerbation. 3. Anemia, chronic. 4. Physical deconditioning. 5. Mild dementia. 6. Parkinsonism features. 7. Palliative care status. 8. Atrial fibrillation. 9. Long-term use of anticoagulants. PLAN: I advised physical therapy for strengthening. He might benefit from swing bed status. I have switched from IV Lasix to oral today and proteins and Solu-Medrol to oral to see if he can be able to continue on that. We will repeat electrolytes in the morning. /[id number] MARCELLUS/TENISHA
[2017-01-06] MEDS: Dutasteride 0.5 MG Cap PO SCH (20:07)
[2017-01-06] MEDS: Tamsulosin 0.4 MG Cap.ER PO SCH (20:07)
[2017-01-06] MEDS: Simvastatin 40 MG Tab PO SCH (20:08)
[2017-01-07] MEDS: Budesonide 0.5 MG/2 ML Neb Susp INH SCH ×2 (07:05→20:07)
[2017-01-07] MEDS: Albuterol 0.083% 2.5 MG/3 ML Neb Soln NEB SCH ×4 (07:05→20:08)
[2017-01-07] MEDS: Ferrous Sulfate 325 MG Tab PO SCH ×2 (08:34→17:48)
[2017-01-07] MEDS: Spironolactone 25 MG Tab PO SCH (08:34)
[2017-01-07] MEDS: Aspirin 81 MG Tab.Chew PO SCH (08:35)
[2017-01-07] MEDS: Tiotropium Inhaler 18 MCG Inhalation Powder Cap Kit of 5 INH SCH (08:35)
[2017-01-07] MEDS: Sertraline 100 MG Tab PO SCH ×2 (08:37→20:07)
[2017-01-07] MEDS: Psyllium 0.52 GM Cap PO SCH (08:38)
[2017-01-07] MEDS ORDERED: Warfarin Sliding Scale PO SCH (08:45)
[2017-01-07] MEDS: Carvedilol 3.125 MG Tab PO SCH ×2 (09:15→17:48)
[2017-01-07] MEDS: methylPREDNISolone Sodium Succinate 40 MG/1 ML SDV IVPUSH SCH ×2 (09:15→16:33)
[2017-01-07] MEDS: Furosemide 40 MG/4 ML VIAL IVPUSH SCH (09:19)
[2017-01-07] MEDS: Sodium Chloride 0.9% 10 ML Syringe FLUSH PRN (09:19)
[2017-01-07] MEDS ORDERED: Levofloxacin/Dextrose 5%-Water 500 MG in Premix Bag 1 BAG IV SCH (10:00)
[2017-01-07] MEDS: Sodium Chloride 0.9% 250 ML IV SCH (10:10)
[2017-01-07] MEDS: predniSONE 20 MG Tab PO SCH (10:21)
[2017-01-07] MEDS: Furosemide 20 MG Tab PO SCH (10:21)
--- NOTE | 2017-01-07 11:42 | CR ---
INDICATION: CHF, pneumonia. CHEST: AP and lateral views of the chest 01/07/2017 were compared with 2016 and 08/16/2014, revealing continued bibasilar pleuroparenchymal changes and some heavy markings in the right mid lung field additionally, but with decreased severity of the infiltrates compared with the previous study, compatible with early resolving bibasilar pneumonia and possibly resolving interstitial pulmonary edema. Even a degree of alveolar lung edema could have been present on the previous study. Pulmonary vasculature is slightly less prominent, suggesting resolving CHF additionally. The heart is enlarged, as previously, emphasized by relatively poor inspiration. Lungs appear to be somewhat hyperaerated, suggesting COPD. Multiple rib fractures are noted on the right posterolaterally. Evidence of previous median sternotomy is noted. Degenerative changes are noted in the spine with suggestion of a degree of demineralization, which may be on the basis of osteomalacia or osteoporosis and should be correlated clinically. IMPRESSION: Overall improvement in the appearance of the chest compared with the previous study, compatible with resolving CHF, lung edema, and early resolving bibasilar pneumonia. No new acute process is suggested. MTDD
--- NOTE | 2017-01-07 11:53 | PN ---
DATE SEEN: 01/07/2017 SUBJECTIVE: Jann Perez is an 81-year-old male with in attendance, was seen in the morning of 01/07. Admitted with acute congestive heart failure, bilateral pleural effusions, and complicated respiratory difficulty. On oral prednisone, oral furosemide. Up about 3 pounds since admission. Does have underlying COPD, on home O2. PT OT involved. Large pleural effusion on AP film, PA and lateral will be obtained accordingly. Prednisone as noted. On no antibiotic therapy. Echocardiogram ordered, not available, not till Tuesday. LABORATORY STUDIES: On admission, white count 4800, repeat 5100; hemoglobin 10.1, 9.6; moderate reduction in kidney function. GFR 36.71, BUN has risen from 49 to 82, appetite markedly absent. PHYSICAL EXAMINATION: VITAL SIGNS: Stable. NECK: Benign. Thyroid small. CHEST: Decreased breath sounds both bases. HEART: Distant without ectopy. S4 present. ABDOMEN: Benign. Complicated edema. ASSESSMENT: Congestive heart failure with underlying chronic obstructive pulmonary disease, probable pneumonia. PLAN: We will do IV furosemide 40 mg 1 daily, carvedilol 3.125 mg b.i.d. Solu-Medrol 40 mg q.[address] Jose Ro for consideration for thoracentesis for evaluation of fluids. Complementary care and well being. Levaquin will be reduced from 500 to 250 given GFR. IV fluids will be instituted at low dose. /[id number] /TENISHA
[2017-01-07] MEDS ORDERED: Warfarin 2 MG Tab PO SCH (16:00)
[2017-01-07] MEDS: Sodium Chloride 0.9% 1,000 ML IV SCH (17:30)
--- NOTE | 2017-01-07 18:46 | CONS ---
DATE OF CONSULTATION: 01/07/2017 HISTORY OF PRESENT ILLNESS: This 81-year-old gentleman was admitted through the emergency room 3 days ago for worsening shortness of breath. He has a history of COPD and is being treated for bronchitis. I was asked to evaluate him for possible thoracentesis to see if this would help in his breathing. PHYSICAL EXAMINATION: GENERAL: Reveals a pleasant gentleman, who is quite frail and short of breath. He is alert and cooperative. LUNGS: Diminished bilaterally. EXTREMITIES: He does have significant edema in his subcutaneous tissue throughout his entire legs. VITAL SIGNS: His vitals are reviewed. He is afebrile. DIAGNOSTIC DATA: I did review his chest x-ray with Dr. Ontiveros. He does appear to have resolving pneumonia and CHF. He, however, does not have any significant fluid that could be removed. ASSESSMENT: Resolving congestive heart failure. PLAN: Findings were reviewed with the patient and and thoracentesis is not recommended at this time. I will see him again on a p.r.n. basis. /[id number] RENALDO/TENISHA GURROLA
[2017-01-07] MEDS: Albuterol 0.083% 2.5 MG/3 ML Neb Soln NEB PRN (18:51)
[2017-01-07] MEDS: ALPRAZolam 0.25 MG Tab PO PRN (19:11)
[2017-01-07] MEDS: Simvastatin 40 MG Tab PO SCH (20:07)
[2017-01-07] MEDS: Dutasteride 0.5 MG Cap PO SCH (20:07)
[2017-01-07] MEDS: Tamsulosin 0.4 MG Cap.ER PO SCH (20:07)
[2017-01-08] MEDS: methylPREDNISolone Sodium Succinate 40 MG/1 ML SDV IVPUSH SCH ×3 (00:39→17:04)
[2017-01-08] MEDS: Albuterol 0.083% 2.5 MG/3 ML Neb Soln NEB PRN ×3 (05:37→23:57)
[2017-01-08] MEDS: Albuterol 0.083% 2.5 MG/3 ML Neb Soln NEB SCH ×4 (07:05→20:06)
[2017-01-08] MEDS: Budesonide 0.5 MG/2 ML Neb Susp INH SCH ×2 (07:05→20:28)
[2017-01-08] MEDS: Ferrous Sulfate 325 MG Tab PO SCH ×2 (07:38→17:06)
[2017-01-08] MEDS: Carvedilol 3.125 MG Tab PO SCH ×2 (07:38→17:04)
[2017-01-08] MEDS: Sertraline 100 MG Tab PO SCH ×2 (09:50→20:26)
[2017-01-08] MEDS: Tiotropium Inhaler 18 MCG Inhalation Powder Cap Kit of 5 INH SCH (09:51)
[2017-01-08] MEDS: Furosemide 40 MG/4 ML VIAL IVPUSH SCH (09:51)
[2017-01-08] MEDS: Spironolactone 25 MG Tab PO SCH (09:52)
[2017-01-08] MEDS: Polyethylene Glycol 3350 Powder 17 GM Packet PO SCH (09:53)
[2017-01-08] MEDS: Aspirin 81 MG Tab.Chew PO SCH (09:53)
[2017-01-08] MEDS: Levofloxacin/Dextrose 5%-Water 50 ML IV SCH (10:51)
--- NOTE | 2017-01-08 12:33 | PN ---
DATE SEEN: 01/08/2017 SUBJECTIVE: Luther Perez is an 81-year-old male, admitted with complicated congestive heart failure, complicated renal function, and underlying pneumonia. He appears to be some better. RT is actively involved. Present medications include IV furosemide daily, levofloxacin, methylprednisolone, and aggressive RT treatment. For recent x-ray 01/07/2017, revealed nice improvement. Laboratory studies, CBC, and panel-8 pending this morning, declining renal function. Of concern, diuretics in place and fluids in place. Otherwise improving. PHYSICAL EXAMINATION: VITAL SIGNS: 81 kilos, 111/70, mean blood pressure 83, 89% 2 L now on 3 L. GENERAL: Appears very frail. NECK: Benign. No JVD. CHEST: Decreased breath sounds both bases. HEART: Sounds distant without ectopy or significant murmur. ABDOMEN: Benign. ASSESSMENT: 1. Congestive heart failure, improving. 2. Underlying severe lung disease. 3. Underlying significant heart disease. PLAN: Medications, care, and treatment appropriate. Laboratory studies to be provided, performed, proceed accordingly. /[id number] ENEDELIA/TENISHA
[2017-01-08] MEDS: ALPRAZolam 0.25 MG Tab PO PRN (13:54)
[2017-01-08] MEDS: Sodium Chloride 0.9% 1,000 ML IV SCH (15:09)
[2017-01-08] MEDS ORDERED: Warfarin 2 MG Tab PO ONE (16:00)
[2017-01-08] MEDS ORDERED: Warfarin 4 MG Tab PO SCH (16:00)
[2017-01-08] MEDS: Dutasteride 0.5 MG Cap PO SCH (20:23)
[2017-01-08] MEDS: Tamsulosin 0.4 MG Cap.ER PO SCH (20:24)
[2017-01-08] MEDS: Simvastatin 40 MG Tab PO SCH (20:25)
[2017-01-09] MEDS: methylPREDNISolone Sodium Succinate 40 MG/1 ML SDV IVPUSH SCH ×3 (00:02→17:46)
[2017-01-09] MEDS: Budesonide 0.5 MG/2 ML Neb Susp INH SCH ×2 (07:40→20:57)
[2017-01-09] MEDS: Albuterol 0.083% 2.5 MG/3 ML Neb Soln NEB SCH ×4 (07:40→20:57)
[2017-01-09] MEDS: Carvedilol 3.125 MG Tab PO SCH (08:42)
[2017-01-09] MEDS: Tiotropium Inhaler 18 MCG Inhalation Powder Cap Kit of 5 INH SCH (08:43)
[2017-01-09] MEDS: Aspirin 81 MG Tab.Chew PO SCH (08:44)
[2017-01-09] MEDS: Ferrous Sulfate 325 MG Tab PO SCH ×2 (08:44→17:48)
[2017-01-09] MEDS: Spironolactone 25 MG Tab PO SCH (08:44)
[2017-01-09] MEDS: Furosemide 40 MG/4 ML VIAL IVPUSH SCH ×2 (08:45→14:07)
[2017-01-09] MEDS: Polyethylene Glycol 3350 Powder 17 GM Packet PO SCH (08:46)
[2017-01-09] MEDS: Sertraline 100 MG Tab PO SCH ×2 (08:50→20:59)
[2017-01-09] MEDS ORDERED: Carvedilol 3.125 MG Tab PO ONE (10:29)
[2017-01-09] MEDS: Levofloxacin/Dextrose 5%-Water 50 ML IV SCH (10:40)
[2017-01-09] MEDS: ALPRAZolam 0.25 MG Tab PO PRN (11:03)
[2017-01-09] MEDS: Sodium Chloride 0.9% 10 ML Syringe FLUSH PRN ×2 (12:20→14:13)
--- NOTE | 2017-01-09 15:51 | PN ---
DATE SEEN: 01/09/2017 SUBJECTIVE: Mr. Perez is an 81-year-old male, admitted with acute congestive heart failure, underlying pneumonia, and decompensating heart. He appears to be improving. At present, 40 mg of Lasix IV, increasing doses of carvedilol. Echocardiogram is scheduled for Tuesday, 11 of January. Weight is under scrutiny. LABORATORY STUDIES: INR today at 2.43. CBC, 01/08/2017, hemoglobin stabilizing at 10, white count 4700, and creatinine has fallen from 1.3 to 1.4 to 1.2. GFR has risen to 58, and BUN has fallen from 82 to 70. Intake of fluids has been moderate. OBJECTIVE: VITAL SIGNS: 36.6, pulse is 78, irregular; 115/68, 83 is the mean blood pressure, and 22 is the respiratory rate at 3 L per nasal cannula. NECK: Benign. No JVD. CHEST: Some better air exchange throughout all lung zaman. HEART: Distant without ectopy. S4 present. ABDOMEN: Benign. Moderate edema in lower extremities. ASSESSMENT: 1. Congestive heart failure exacerbation. 2. Underlying pneumonia. PLAN: We will increase his furosemide to 40 b.i.d., carvedilol from 3.125 to 6.25 b.i.d. Complementary care will be moderated with limitations. Echocardiogram to follow. /[id number] /TENISHA
[2017-01-09] MEDS: Carvedilol 6.25 MG Tab PO SCH (19:44)
[2017-01-09] MEDS: Dutasteride 0.5 MG Cap PO SCH (20:56)
[2017-01-09] MEDS: Tamsulosin 0.4 MG Cap.ER PO SCH (20:56)
[2017-01-09] MEDS: Simvastatin 40 MG Tab PO SCH (20:58)
[2017-01-10] MEDS: methylPREDNISolone Sodium Succinate 40 MG/1 ML SDV IVPUSH SCH ×3 (00:49→16:37)
[2017-01-10] MEDS: Sodium Chloride 0.9% 10 ML Syringe FLUSH PRN ×5 (00:50→13:51)
[2017-01-10] MEDS: Budesonide 0.5 MG/2 ML Neb Susp INH SCH ×2 (07:04→21:11)
[2017-01-10] MEDS: Albuterol 0.083% 2.5 MG/3 ML Neb Soln NEB SCH ×4 (07:05→21:02)
[2017-01-10] MEDS: Carvedilol 6.25 MG Tab PO SCH ×2 (08:35→18:24)
[2017-01-10] MEDS: Furosemide 40 MG/4 ML VIAL IVPUSH SCH ×2 (08:37→13:49)
[2017-01-10] MEDS: Ferrous Sulfate 325 MG Tab PO SCH ×2 (08:37→18:24)
[2017-01-10] MEDS: Spironolactone 25 MG Tab PO SCH (08:37)
[2017-01-10] MEDS: Aspirin 81 MG Tab.Chew PO SCH (08:38)
[2017-01-10] MEDS: Polyethylene Glycol 3350 Powder 17 GM Packet PO SCH (08:38)
[2017-01-10] MEDS: Sertraline 100 MG Tab PO SCH ×2 (08:40→21:12)
[2017-01-10] MEDS: Tiotropium Inhaler 18 MCG Inhalation Powder Cap Kit of 5 INH SCH (09:31)
[2017-01-10] MEDS: Levofloxacin/Dextrose 5%-Water 50 ML IV SCH (10:11)
[2017-01-10] MEDS: Sodium Chloride 0.9% 250 ML IV SCH (10:11)
--- NOTE | 2017-01-10 14:09 | PN ---
DATE SEEN: 01/10/2017 TIME: 8:00 a.m. SUBJECTIVE: Luther Perez is an 81-year-old male, admitted with acute congestive heart failure. Seemed to be better. Weight variable. Feels he is more comfortable with his breathing, ambulatory skills are markedly limited. Chest x-ray on 01/07/2017 revealed by radiologist interpretation overall improvement. Pneumonia still in question. Present IV furosemide, intravenous corticosteroids, intravenous levofloxacin. Echo scheduled for tomorrow will be finally important for evaluating our clinical status. LABORATORY STUDIES: PT 21.6. INR 2.11. On Coumadin therapy. PHYSICAL EXAMINATION: VITAL SIGNS: 104/57, pulse is 77 with occasional ectopy. O2 on at 3 L 91%. GENERAL: Appears more comfortable. Speech was without more quality. NECK: Benign. Thyroid small. No JVD. CHEST: Decreased breath sounds both lower lung zaman. HEART: Regular without ectopy or murmur. S4 present. ABDOMEN: Rotund. EXTREMITIES: Edema of lower extremity. ASSESSMENT: 1. Exacerbation of congestive heart failure. 2. Secondary pneumonia. PLAN: We will continue with IV medications as appropriate. Furosemide and levofloxacin. We will wean and reduce his IV corticosteroids. Laboratory studies will be performed along with followup chest x-ray done in the department. /[id number] ENEDELIA/TENISHA
--- NOTE | 2017-01-10 16:29 | CR ---
INDICATION: Follow-up CHF and pneumonia. CHEST: PA and lateral views of the chest 01/10/2017 compared with 01/07/2017 and 01/04/2017 revealed little interval change from the previous examination. Findings are compatible with a mild degree of CHF and interstitial lung edema, as well as bibasilar pleuroparenchymal changes which may be on the basis of pneumonia and pleuritis. The heart is enlarged. The aorta is calcified. Post median sternotomy changes are noted. 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 Blunted posterior sulci are seen, suggesting slightly increased pleural effusions compared with the pervious study. However, pleural effusions are rather small in size. IMPRESSION: Minimal interval change from the previous study. Very slightly increased small pleural effusions noted. Cannot exclude bibasilar pneumonia and pleuritis currently, as on the previous study, with a mild degree of CHF and interstitial lung edema also suggested. MTDD
[2017-01-10] MEDS: Dutasteride 0.5 MG Cap PO SCH (21:10)
[2017-01-10] MEDS: Tamsulosin 0.4 MG Cap.ER PO SCH (21:11)
[2017-01-10] MEDS: Simvastatin 40 MG Tab PO SCH (21:12)
[2017-01-11] MEDS: methylPREDNISolone Sodium Succinate 40 MG/1 ML SDV IVPUSH SCH ×3 (02:59→17:03)
[2017-01-11] MEDS: Budesonide 0.5 MG/2 ML Neb Susp INH SCH ×2 (07:05→20:13)
[2017-01-11] MEDS: Albuterol 0.083% 2.5 MG/3 ML Neb Soln NEB SCH ×4 (07:05→20:03)
[2017-01-11] MEDS: Sodium Chloride 0.9% 10 ML Syringe FLUSH PRN ×2 (08:36→17:04)
[2017-01-11] MEDS: Furosemide 40 MG/4 ML VIAL IVPUSH SCH (08:36)
[2017-01-11] MEDS: Ferrous Sulfate 325 MG Tab PO SCH ×2 (08:36→18:00)
[2017-01-11] MEDS: Spironolactone 25 MG Tab PO SCH (08:37)
[2017-01-11] MEDS: Polyethylene Glycol 3350 Powder 17 GM Packet PO SCH (08:37)
[2017-01-11] MEDS: Aspirin 81 MG Tab.Chew PO SCH (08:37)
[2017-01-11] MEDS: Sertraline 100 MG Tab PO SCH ×2 (08:38→20:42)
[2017-01-11] MEDS: Tiotropium Inhaler 18 MCG Inhalation Powder Cap Kit of 5 INH SCH (08:38)
[2017-01-11] MEDS: Carvedilol 12.5 MG Tab PO SCH ×2 (10:05→20:41)
[2017-01-11] MEDS: Levofloxacin 250 MG Tab PO SCH (10:06)
--- NOTE | 2017-01-11 11:21 | PN ---
DATE SEEN: 01/11/2017 SUBJECTIVE: Luther Perez is an 81-year-old male, seen today for review. Much improved. Congestive heart failure, cardiac decompensation, and suspicion for pneumonia. He appears to be doing reasonably well. Much more comfortable with conversation. Ambulatory skills are improving though short of breath. Underlying COPD. Echocardiogram scheduled for 11:00 a.m. will be reviewed, results as appropriate. Comfortable with his well being. Vital Signs: 79.424, 82.963, 521. Nice diuresis. Chest x-ray, little interval change. OBJECTIVE: VITAL SIGNS: 36.4, pulse of 96, 125/58, 26 is the respirations, 96% O2 on 3 L. GENERAL: Appears much more comfortable. NECK: Benign. No JVD. CHEST: Much clear in all lung zaman. Distant heart sounds. ABDOMEN: Benign. Minimal edema. ASSESSMENT: 1. Congestive heart failure, resolving. 2. Pneumonia, resolving. PLAN: Cardiac status echo, upcoming plan 11 o'clock, results to follow. /[id number] /KAYLAL
[2017-01-11] MEDS: Carvedilol 6.25 MG Tab PO SCH (15:55)
[2017-01-11] MEDS ORDERED: Warfarin 5 MG Tab PO ONE (16:00)
[2017-01-11] MEDS: Tamsulosin 0.4 MG Cap.ER PO SCH (20:41)
[2017-01-11] MEDS: Dutasteride 0.5 MG Cap PO SCH (20:41)
[2017-01-11] MEDS: Simvastatin 40 MG Tab PO SCH (20:42)
[2017-01-11] MEDS: ALPRAZolam 0.25 MG Tab PO PRN (23:34)
[2017-01-12] MEDS: methylPREDNISolone Sodium Succinate 40 MG/1 ML SDV IVPUSH SCH
[2017-01-12] MEDS: Sodium Chloride 0.9% 10 ML Syringe FLUSH PRN (00:01)
[2017-01-12] MEDS: Albuterol 0.083% 2.5 MG/3 ML Neb Soln NEB SCH (07:20)
[2017-01-12] MEDS: Budesonide 0.5 MG/2 ML Neb Susp INH SCH (07:20)
[2017-01-12 08:15] VITALS: BP 116/59
[2017-01-12] MEDS: Ferrous Sulfate 325 MG Tab PO SCH (08:27)
[2017-01-12] MEDS ORDERED: Furosemide 20 MG Tab PO SCH (09:00)
[2017-01-12] MEDS ORDERED: Furosemide 80 MG Tab PO SCH (09:00)
[2017-01-12] MEDS: Spironolactone 25 MG Tab PO SCH (09:49)
[2017-01-12] MEDS: Levofloxacin 250 MG Tab PO SCH (09:50)
[2017-01-12] MEDS: Aspirin 81 MG Tab.Chew PO SCH (09:50)
[2017-01-12] MEDS: Tiotropium Inhaler 18 MCG Inhalation Powder Cap Kit of 5 INH SCH (09:50)
[2017-01-12] MEDS: Polyethylene Glycol 3350 Powder 17 GM Packet PO SCH (09:50)
[2017-01-12] MEDS: Sertraline 100 MG Tab PO SCH (09:50)
[2017-01-13] MEDS ORDERED: predniSONE 10 MG Tab PO SCH (08:00)
--- NOTE | 2017-01-13 11:47 | DISCH ---
DISCHARGE DATE: 01/12/2017 HOSPITAL COURSE: Luther Perez is an 81-year-old male admitted with complicated respiratory difficulty, suspicion for pneumonia, conversation regarding congestive heart failure versus COPD. Home O2 required. Please see hospital history and physical. Diagnostic studies reviewed and appropriate. Echocardiogram revealed timely information. Previous coronary artery bypass surgery noted. Ejection fraction 65%. Pulmonary pressures in the mid 60s, and evidence of right heart failure and pulmonary hypertension. Medications were adjusted accordingly. He was switched from aggressive IV therapy to oral therapy with good results. Diuretics and carvedilol were discontinued with the absence of congestive heart failure, aggressive RT to include albuterol, Pulmicort, and present medications. At the time of discharge to swing bed, the patient was comfortable, breathing better, O2 demands were improved, and he was in better spirits. SURGICAL PROCEDURES: None. CONSULTATIONS: None. /[id number] ENEDELIA/TENISHA
== END 2017-01-12 10:40 | disposition swing bed (61) | DRG 190 ==
LOC: FB.ED 20:28 → FB.ICU 21:56 → FB.MS 01-05 09:25
PROVIDERS: ADMIT Emergency Medicine; ATTEND Family Medicine
DX: J44.0 Chronic obstructive pulmonary disease with (acute) lower respiratory infection (principal); J18.9 Pneumonia, unspecified organism; I42.0 Dilated cardiomyopathy; J20.9 Acute bronchitis, unspecified; J44.1 Chronic obstructive pulmonary disease with (acute) exacerbation; I50.9 Heart failure, unspecified; I48.2 Chronic atrial fibrillation; Z66 Do not resuscitate; Z51.5 Encounter for palliative care; Z99.81 Dependence on supplemental oxygen; Z87.891 Personal history of nicotine dependence; Z79.01 Long term (current) use of anticoagulants; F03.90 Unspecified dementia, unspecified severity, without behavioral disturbance, psychotic disturbance, mood disturbance, and anxiety; I25.10 Atherosclerotic heart disease of native coronary artery without angina pectoris; Z95.1 Presence of aortocoronary bypass graft; Z95.5 Presence of coronary angioplasty implant and graft; K59.09 Other constipation; N40.0 Benign prostatic hyperplasia without lower urinary tract symptoms; F41.9 Anxiety disorder, unspecified; M54.9 Dorsalgia, unspecified; G89.29 Other chronic pain; D64.9 Anemia, unspecified; R53.81 Other malaise; R25.9 Unspecified abnormal involuntary movements; Z87.01 Personal history of pneumonia (recurrent); H54.7 Unspecified visual loss; Z79.82 Long term (current) use of aspirin; Z79.52 Long term (current) use of systemic steroids; H35.30 Unspecified macular degeneration
CPT/HCPCS: 36415; 71010; 80048; 83880; 84484; 85025; 85610; 93005 ×2; 94640; 96374; 99285 ×2; J2930; J7050; J7620; 71020; 80053; 85027; 93306; 97110-GO; 97110-GP; 97116-GP; 97161-GP; 97165-GO; 97530-GO-KX; 97530-GP; 97535-GO; A9270-GY; J1940; J1956; J2920; J7040

== ENCOUNTER 2017-01-12 10:40 | Inpatient (IN) | payer MEDICARE, OTHER ==
[2017-01-12] MEDS ORDERED: Omeprazole 20 MG Cap.CR PO PRN (11:01)
[2017-01-12] MEDS: Albuterol 0.083% 2.5 MG/3 ML Neb Soln NEB SCH ×3 (11:30→21:56)
[2017-01-12] MEDS: Ferrous Sulfate 325 MG Tab PO SCH ×2 (13:15→18:10)
[2017-01-12] MEDS ORDERED: Warfarin 5 MG, Warfarin 2.5 MG PO ONE ×2 (16:00)
[2017-01-12] MEDS: Budesonide 0.5 MG/2 ML Neb Susp INH SCH (21:56)
[2017-01-12] MEDS: Simvastatin 40 MG Tab PO SCH (21:56)
[2017-01-12] MEDS: ALPRAZolam 0.25 MG Tab PO PRN (21:56)
[2017-01-12] MEDS: Dutasteride 0.5 MG Cap PO SCH (21:56)
[2017-01-12] MEDS: Sertraline 100 MG Tab PO SCH (21:56)
[2017-01-12] MEDS: Tamsulosin 0.4 MG Cap.ER PO SCH (21:56)
[2017-01-13] MEDS: Albuterol 0.083% 2.5 MG/3 ML Neb Soln NEB SCH ×4 (06:28→20:12)
[2017-01-13] MEDS ORDERED: Morphine 2 MG/ML Syringe IVPUSH PRN (08:14)
[2017-01-13] MEDS ORDERED: Sodium Phosphate,Monobasic/Sodium Phosphate,Dibasic Enema 133 ML Bottle RECTAL ONE (08:16)
[2017-01-13] MEDS: predniSONE 10 MG Tab PO SCH (08:47)
[2017-01-13] MEDS: Ferrous Sulfate 325 MG Tab PO SCH ×2 (08:47→17:02)
[2017-01-13] MEDS: Spironolactone 25 MG Tab PO SCH (08:47)
[2017-01-13] MEDS: Furosemide 20 MG Tab PO SCH (08:48)
[2017-01-13] MEDS: Budesonide 0.5 MG/2 ML Neb Susp INH SCH ×2 (08:48→20:12)
[2017-01-13] MEDS: Aspirin 81 MG Tab.Chew PO SCH (08:48)
[2017-01-13] MEDS: Polyethylene Glycol 3350 Powder 17 GM Packet PO SCH (08:48)
[2017-01-13] MEDS: Tiotropium Inhaler 18 MCG Inhalation Powder Cap Kit of 5 INH SCH (08:49)
[2017-01-13] MEDS: Sertraline 100 MG Tab PO SCH ×2 (08:50→20:12)
[2017-01-13] MEDS ORDERED: Polyethylene Glycol 3350 Powder 17 GM Packet PO SCH (09:00)
[2017-01-13] MEDS ORDERED: Warfarin Sliding Scale PO SCH (09:00)
[2017-01-13] MEDS: Levofloxacin 250 MG Tab PO SCH (09:47)
--- NOTE | 2017-01-13 10:45 | PN ---
DATE SEEN: 01/13/2017 SUBJECTIVE: Luther Perez is an 81-year-old male, recently swung from regular bed to swing bed. He presents with end-stage COPD, marked pulmonary hypertension numbers in the mid 60s, but a good cardiac function with 65%. He is presently on aggressive respiratory treatment including Pulmicort, low- dose prednisone, Spiriva, and albuterol. Anticoagulant therapy has been satisfactory. Otherwise, in good spirits. Recent pro-time not obtained. OBJECTIVE: VITAL SIGNS: Stable. HEENT: Unremarkable. NECK: Supple. Thyroid small. CHEST: Increased AP diameter. Prolonged expiratory phase. Coarse rhonchi, clear with cough. CARDIAC: Distant heart sounds. ABDOMEN: Benign. ASSESSMENT: Severe exacerbation of chronic obstructive pulmonary disease, improved; cardiovascular status stable. PLAN: Medications, care, and treatment are appropriate, no intervention or changes required, we will check his pro-time routinely. /[id number] ENEDELIA/TENISHA
[2017-01-13] MEDS ORDERED: Warfarin 4 MG Tab PO SCH (16:00)
[2017-01-13] MEDS: Simvastatin 40 MG Tab PO SCH (20:12)
[2017-01-13] MEDS: Tamsulosin 0.4 MG Cap.ER PO SCH (20:12)
[2017-01-13] MEDS: Dutasteride 0.5 MG Cap PO SCH (20:12)
[2017-01-14] MEDS: Albuterol 0.083% 2.5 MG/3 ML Neb Soln NEB SCH ×4 (07:04→20:06)
[2017-01-14] MEDS: Budesonide 0.5 MG/2 ML Neb Susp INH SCH ×2 (08:29→20:06)
[2017-01-14] MEDS: predniSONE 10 MG Tab PO SCH (08:38)
[2017-01-14] MEDS: Ferrous Sulfate 325 MG Tab PO SCH ×2 (08:38→17:53)
[2017-01-14] MEDS: Furosemide 20 MG Tab PO SCH (08:39)
[2017-01-14] MEDS: Polyethylene Glycol 3350 Powder 17 GM Packet PO SCH (08:39)
[2017-01-14] MEDS: Spironolactone 25 MG Tab PO SCH (08:39)
[2017-01-14] MEDS: Aspirin 81 MG Tab.Chew PO SCH (08:39)
[2017-01-14] MEDS: Sertraline 100 MG Tab PO SCH ×2 (08:40→20:07)
[2017-01-14] MEDS: Tiotropium Inhaler 18 MCG Inhalation Powder Cap Kit of 5 INH SCH (08:42)
[2017-01-14] MEDS: Levofloxacin 250 MG Tab PO SCH (09:29)
[2017-01-14] MEDS ORDERED: Acetaminophen 325 MG Tab PO PRN (09:40)
[2017-01-14] MEDS: Warfarin 2 MG Tab PO SCH (15:53)
[2017-01-14] MEDS: Dutasteride 0.5 MG Cap PO SCH (20:05)
[2017-01-14] MEDS: Tamsulosin 0.4 MG Cap.ER PO SCH (20:06)
[2017-01-14] MEDS: Simvastatin 40 MG Tab PO SCH (20:06)
[2017-01-15] MEDS: Budesonide 0.5 MG/2 ML Neb Susp INH SCH ×2 (07:08→20:23)
[2017-01-15] MEDS: Albuterol 0.083% 2.5 MG/3 ML Neb Soln NEB SCH ×4 (07:08→20:23)
[2017-01-15] MEDS: Aspirin 81 MG Tab.Chew PO SCH (08:07)
[2017-01-15] MEDS: Ferrous Sulfate 325 MG Tab PO SCH ×2 (08:07→17:03)
[2017-01-15] MEDS: Spironolactone 25 MG Tab PO SCH (08:07)
[2017-01-15] MEDS: predniSONE 10 MG Tab PO SCH (08:07)
[2017-01-15] MEDS: Tiotropium Inhaler 18 MCG Inhalation Powder Cap Kit of 5 INH SCH (08:08)
[2017-01-15] MEDS: Polyethylene Glycol 3350 Powder 17 GM Packet PO SCH (08:08)
[2017-01-15] MEDS: Furosemide 20 MG Tab PO SCH (08:08)
[2017-01-15] MEDS: Sertraline 100 MG Tab PO SCH ×2 (08:09→20:23)
[2017-01-15] MEDS: Levofloxacin 250 MG Tab PO SCH (10:16)
[2017-01-15] MEDS: Warfarin 4 MG Tab PO SCH (17:00)
[2017-01-15] MEDS: Dutasteride 0.5 MG Cap PO SCH (20:22)
[2017-01-15] MEDS: Tamsulosin 0.4 MG Cap.ER PO SCH (20:22)
[2017-01-15] MEDS: Simvastatin 40 MG Tab PO SCH (20:23)
[2017-01-16] MEDS: Budesonide 0.5 MG/2 ML Neb Susp INH SCH ×2 (07:06→20:46)
[2017-01-16] MEDS: Albuterol 0.083% 2.5 MG/3 ML Neb Soln NEB SCH ×4 (07:06→20:46)
[2017-01-16] MEDS: Aspirin 81 MG Tab.Chew PO SCH (08:08)
[2017-01-16] MEDS: predniSONE 10 MG Tab PO SCH (08:08)
[2017-01-16] MEDS: Ferrous Sulfate 325 MG Tab PO SCH ×2 (08:08→17:50)
[2017-01-16] MEDS: Sertraline 100 MG Tab PO SCH ×2 (08:08→20:47)
[2017-01-16] MEDS: Furosemide 20 MG Tab PO SCH (08:08)
[2017-01-16] MEDS: Polyethylene Glycol 3350 Powder 17 GM Packet PO SCH (08:09)
[2017-01-16] MEDS: Spironolactone 25 MG Tab PO SCH (08:09)
[2017-01-16] MEDS: Tiotropium Inhaler 18 MCG Inhalation Powder Cap Kit of 5 INH SCH (08:09)
[2017-01-16] MEDS: Warfarin 4 MG Tab PO SCH (15:48)
[2017-01-16] MEDS: Tamsulosin 0.4 MG Cap.ER PO SCH (20:45)
[2017-01-16] MEDS: Dutasteride 0.5 MG Cap PO SCH (20:45)
[2017-01-16] MEDS: Simvastatin 40 MG Tab PO SCH (20:47)
[2017-01-17] MEDS: Budesonide 0.5 MG/2 ML Neb Susp INH SCH ×2 (07:08→21:33)
[2017-01-17] MEDS: Albuterol 0.083% 2.5 MG/3 ML Neb Soln NEB SCH ×4 (07:08→21:33)
[2017-01-17] MEDS: Aspirin 81 MG Tab.Chew PO SCH (08:18)
[2017-01-17] MEDS: Sertraline 100 MG Tab PO SCH ×2 (08:18→21:36)
[2017-01-17] MEDS: Polyethylene Glycol 3350 Powder 17 GM Packet PO SCH (08:18)
[2017-01-17] MEDS: Ferrous Sulfate 325 MG Tab PO SCH ×2 (08:18→17:00)
[2017-01-17] MEDS: Tiotropium Inhaler 18 MCG Inhalation Powder Cap Kit of 5 INH SCH (08:18)
[2017-01-17] MEDS: Furosemide 20 MG Tab PO SCH (08:18)
[2017-01-17] MEDS: Spironolactone 25 MG Tab PO SCH (08:18)
[2017-01-17] MEDS: predniSONE 10 MG Tab PO SCH (08:18)
--- NOTE | 2017-01-17 11:48 | PCM.PN ---
- General Info Date of Service: 01/17/17 Admission Dx/Problem (Free Text): Patient states yesterday and this morning a little chest discomfort for about 15 minutes and then it went away. He has shortness of breath but he is about about the same for him. He is working on strengthening. He has chronic swelling in his legs no changes. - Patient Data Vitals - most recent: Last Vital Signs Temp 98.0 F 01/17/17 07:35 Pulse 78 01/17/17 11:00 Resp 20 01/17/17 07:35 BP 120/66 01/17/17 07:35 Pulse Ox 93 L 01/17/17 11:00 Weight - most recent: 179 lb 6.4 oz I&O - last 24 hours: Intake & Output 01/16/17 01/17/17 01/17/17 22:59 06:59 14:59 Output Total 450 Balance -450 Lab Results last 24 hrs: Laboratory Results - last 24 hr 01/17/17 Range/Units 06:25 PT 20.6 H (8.7-11.1) INR 2.01 H (0.89-1.13) Med Orders - Current: Current Medications Acetaminophen (Tylenol) 650 mg PO Q6H PRN PRN Reason: Pain Last Admin: 01/15/17 08:49 Dose: 650 mg Albuterol (Proventil Neb Soln) 2.5 mg NEB Q4H PRN PRN Reason: Dyspnea Albuterol (Proventil Neb Soln) 2.5 mg NEB QIDRT [facility] Last Admin: 01/17/17 10:51 Dose: 2.5 mg Alprazolam (Xanax) 0.25 mg PO TID PRN PRN Reason: Anxiety Last Admin: 01/12/17 21:56 Dose: 0.25 mg Aspirin (Aspirin) 81 mg PO DAILY [facility] Last Admin: 01/17/17 08:18 Dose: 81 mg Budesonide (Pulmicort) 0.5 mg INH BIDRT [facility] Last Admin: 01/17/17 07:08 Dose: 0.5 mg Dutasteride (Avodart) 0.5 mg PO BEDTIME [facility] Last Admin: 01/16/17 20:45 Dose: 0.5 mg Ferrous Sulfate (Ferrous Sulfate) 325 mg PO BIDMEALS [facility] Last Admin: 01/17/17 08:18 Dose: 325 mg Furosemide (Lasix) 20 mg PO DAILY [facility] Last Admin: 01/17/17 08:18 Dose: 20 mg Omeprazole (Omeprazole) 20 mg PO DAILY PRN PRN Reason: Heartburn Polyethylene Glycol (Miralax) 17 gm PO DAILY [facility] Last Admin: 01/17/17 08:18 Dose: 17 gm Prednisone (Prednisone) 10 mg PO WITHBREAKFAST [facility] Last Admin: 01/17/17 08:18 Dose: 10 mg Sertraline HCl (Zoloft) 100 mg PO BID [facility] Last Admin: 01/17/17 08:18 Dose: 100 mg Simvastatin (Zocor) 40 mg PO BEDTIME [facility] Last Admin: 01/16/17 20:47 Dose: 40 mg Spironolactone (Aldactone) 12.5 mg PO DAILY [facility] Last Admin: 01/17/17 08:18 Dose: 12.5 mg Tamsulosin HCl (Flomax) 0.4 mg PO BEDTIME [facility] Last Admin: 01/16/17 20:45 Dose: 0.4 mg Tiotropium [place] (Spiriva Handihaler) 18 mcg INH DAILY [facility] Last Admin: 01/17/17 08:18 Dose: 18 mcg Warfarin Sodium (Coumadin Sliding Scale) 1 each PO DAILY [facility] Warfarin Sodium (Coumadin) 2 mg PO MoFr@1600 [facility] Last Admin: 01/14/17 15:53 Dose: 2 mg Warfarin Sodium (Coumadin) 4 mg PO SuTuWeThSa@1600 [facility] Last Admin: 01/16/17 15:48 Dose: 4 mg Discontinued Medications Budesonide (Pulmicort) 0.5 mg INH BID [facility] Last Admin: 01/14/17 08:29 Dose: 0.5 mg Levofloxacin (Levaquin) 250 mg PO Q24H [facility] Stop: 01/15/17 10:01 Last Admin: 01/15/17 10:16 Dose: 250 mg Warfarin Sodium 5 mg/ Warfarin (Sodium 2.5 mg) 7.5 mg PO ONETIME ONE Stop: 01/12/17 16:01 Last Admin: 01/12/17 16:46 Dose: 7.5 mg Warfarin Sodium (Coumadin) 4 mg PO DAILY@1600 [facility] Last Admin: 01/13/17 15:52 Dose: 4 mg - Exam General: alert, oriented Lungs: Normal respiratory effort, Decreased breath sounds. No: Rales Cardiovascular: Irregular Rhythm. No: Murmurs Extremities: no edema - Problem List & Annotations (1) COPD (chronic obstructive pulmonary disease) SNOMED Code(s): 68155344 Code(s): J44.9 - CHRONIC OBSTRUCTIVE PULMONARY DISEASE, UNSPECIFIED Status : Acute Current Visit: No - Problem List Review Problem List Initiated/Reviewed/Updated: Yes - Plan Plan:: Continue current care. Try some nitroglycerin sublingual for chest pain.
[2017-01-17] MEDS: Warfarin 2 MG Tab PO SCH (16:58)
[2017-01-17] MEDS: Dutasteride 0.5 MG Cap PO SCH (21:34)
[2017-01-17] MEDS: Tamsulosin 0.4 MG Cap.ER PO SCH (21:35)
[2017-01-17] MEDS: Simvastatin 40 MG Tab PO SCH (21:35)
[2017-01-18] MEDS: Budesonide 0.5 MG/2 ML Neb Susp INH SCH ×2 (07:05→21:34)
[2017-01-18] MEDS: Albuterol 0.083% 2.5 MG/3 ML Neb Soln NEB SCH ×4 (07:05→21:34)
[2017-01-18] MEDS: traMADol 50 MG Tab PO PRN (08:55)
[2017-01-18] MEDS: Polyethylene Glycol 3350 Powder 17 GM Packet PO SCH (08:56)
[2017-01-18] MEDS: Ferrous Sulfate 325 MG Tab PO SCH ×2 (08:57→17:59)
[2017-01-18] MEDS: predniSONE 10 MG Tab PO SCH (08:57)
[2017-01-18] MEDS: Spironolactone 25 MG Tab PO SCH (08:57)
[2017-01-18] MEDS: Furosemide 20 MG Tab PO SCH (08:58)
[2017-01-18] MEDS: Aspirin 81 MG Tab.Chew PO SCH (08:58)
[2017-01-18] MEDS: Tiotropium Inhaler 18 MCG Inhalation Powder Cap Kit of 5 INH SCH (08:58)
[2017-01-18] MEDS: Sertraline 100 MG Tab PO SCH ×2 (08:59→21:35)
[2017-01-18] MEDS: Warfarin 4 MG Tab PO SCH (16:43)
[2017-01-18] MEDS: Dutasteride 0.5 MG Cap PO SCH (21:33)
[2017-01-18] MEDS: Tamsulosin 0.4 MG Cap.ER PO SCH (21:33)
[2017-01-18] MEDS: Simvastatin 40 MG Tab PO SCH (21:34)
[2017-01-19] MEDS: Albuterol 0.083% 2.5 MG/3 ML Neb Soln NEB SCH ×4 (07:13→20:59)
[2017-01-19] MEDS: Budesonide 0.5 MG/2 ML Neb Susp INH SCH ×2 (07:13→21:00)
[2017-01-19] MEDS: traMADol 50 MG Tab PO PRN (09:26)
[2017-01-19] MEDS: Polyethylene Glycol 3350 Powder 17 GM Packet PO SCH (09:27)
[2017-01-19] MEDS: Spironolactone 25 MG Tab PO SCH (09:28)
[2017-01-19] MEDS: Aspirin 81 MG Tab.Chew PO SCH (09:28)
[2017-01-19] MEDS: predniSONE 10 MG Tab PO SCH (09:28)
[2017-01-19] MEDS: Furosemide 20 MG Tab PO SCH (09:28)
[2017-01-19] MEDS: Sertraline 100 MG Tab PO SCH ×2 (09:28→21:00)
[2017-01-19] MEDS: Ferrous Sulfate 325 MG Tab PO SCH ×2 (09:29→18:23)
[2017-01-19] MEDS: Tiotropium Inhaler 18 MCG Inhalation Powder Cap Kit of 5 INH SCH (09:29)
[2017-01-19] MEDS: Warfarin 4 MG Tab PO SCH (16:23)
[2017-01-19] MEDS: Dutasteride 0.5 MG Cap PO SCH (20:59)
[2017-01-19] MEDS: Tamsulosin 0.4 MG Cap.ER PO SCH (20:59)
[2017-01-19] MEDS: Simvastatin 40 MG Tab PO SCH (21:00)
[2017-01-20] MEDS: Albuterol 0.083% 2.5 MG/3 ML Neb Soln NEB SCH ×4 (07:06→20:10)
[2017-01-20] MEDS: Budesonide 0.5 MG/2 ML Neb Susp INH SCH ×2 (07:06→20:10)
[2017-01-20] MEDS: traMADol 50 MG Tab PO PRN (08:21)
[2017-01-20] MEDS: Tiotropium Inhaler 18 MCG Inhalation Powder Cap Kit of 5 INH SCH (08:22)
[2017-01-20] MEDS: Polyethylene Glycol 3350 Powder 17 GM Packet PO SCH (08:22)
[2017-01-20] MEDS: Ferrous Sulfate 325 MG Tab PO SCH ×2 (08:24→18:39)
[2017-01-20] MEDS: Sertraline 100 MG Tab PO SCH ×2 (08:24→20:09)
[2017-01-20] MEDS: Spironolactone 25 MG Tab PO SCH (08:24)
[2017-01-20] MEDS: Aspirin 81 MG Tab.Chew PO SCH (08:24)
[2017-01-20] MEDS: predniSONE 10 MG Tab PO SCH (08:24)
[2017-01-20] MEDS: Furosemide 20 MG Tab PO SCH (08:24)
[2017-01-20] MEDS: Warfarin 4 MG Tab PO SCH (16:28)
[2017-01-20] MEDS: Dutasteride 0.5 MG Cap PO SCH (20:08)
[2017-01-20] MEDS: Tamsulosin 0.4 MG Cap.ER PO SCH (20:09)
[2017-01-20] MEDS: Simvastatin 40 MG Tab PO SCH (20:10)
[2017-01-21] MEDS: Albuterol 0.083% 2.5 MG/3 ML Neb Soln NEB SCH ×4 (07:21→20:46)
[2017-01-21] MEDS: Budesonide 0.5 MG/2 ML Neb Susp INH SCH ×2 (07:21→20:46)
[2017-01-21] MEDS: traMADol 50 MG Tab PO PRN (08:34)
[2017-01-21] MEDS: Ferrous Sulfate 325 MG Tab PO SCH ×2 (08:37→17:35)
[2017-01-21] MEDS: predniSONE 10 MG Tab PO SCH (08:37)
[2017-01-21] MEDS: Aspirin 81 MG Tab.Chew PO SCH (08:38)
[2017-01-21] MEDS: Spironolactone 25 MG Tab PO SCH (08:38)
[2017-01-21] MEDS: Furosemide 20 MG Tab PO SCH (08:39)
[2017-01-21] MEDS: Polyethylene Glycol 3350 Powder 17 GM Packet PO SCH (08:39)
[2017-01-21] MEDS: Tiotropium Inhaler 18 MCG Inhalation Powder Cap Kit of 5 INH SCH (08:39)
[2017-01-21] MEDS: Sertraline 100 MG Tab PO SCH ×2 (08:41→20:46)
[2017-01-21] MEDS: ALPRAZolam 0.25 MG Tab PO PRN (12:09)
[2017-01-21] MEDS: Warfarin 4 MG Tab PO SCH (15:44)
[2017-01-21] MEDS: Simvastatin 40 MG Tab PO SCH (20:46)
[2017-01-21] MEDS: Tamsulosin 0.4 MG Cap.ER PO SCH (20:46)
[2017-01-21] MEDS: Dutasteride 0.5 MG Cap PO SCH (20:46)
[2017-01-22] MEDS: Albuterol 0.083% 2.5 MG/3 ML Neb Soln NEB SCH ×4 (07:13→20:31)
[2017-01-22] MEDS: Budesonide 0.5 MG/2 ML Neb Susp INH SCH ×2 (07:13→20:31)
[2017-01-22] MEDS: predniSONE 10 MG Tab PO SCH (10:05)
[2017-01-22] MEDS: Spironolactone 25 MG Tab PO SCH (10:05)
[2017-01-22] MEDS: Ferrous Sulfate 325 MG Tab PO SCH ×2 (10:05→17:34)
[2017-01-22] MEDS: Sertraline 100 MG Tab PO SCH ×2 (10:05→20:31)
[2017-01-22] MEDS: Aspirin 81 MG Tab.Chew PO SCH (10:06)
[2017-01-22] MEDS: Furosemide 20 MG Tab PO SCH (10:06)
[2017-01-22] MEDS: Tiotropium Inhaler 18 MCG Inhalation Powder Cap Kit of 5 INH SCH (10:07)
[2017-01-22] MEDS: Polyethylene Glycol 3350 Powder 17 GM Packet PO SCH (10:07)
[2017-01-22] MEDS: ALPRAZolam 0.25 MG Tab PO PRN (15:29)
[2017-01-22] MEDS: Warfarin 4 MG Tab PO SCH (15:29)
[2017-01-22] MEDS: Dutasteride 0.5 MG Cap PO SCH (20:30)
[2017-01-22] MEDS: Tamsulosin 0.4 MG Cap.ER PO SCH (20:31)
[2017-01-22] MEDS: Simvastatin 40 MG Tab PO SCH (20:31)
[2017-01-23] MEDS: Budesonide 0.5 MG/2 ML Neb Susp INH SCH ×2 (07:14→21:32)
[2017-01-23] MEDS: Albuterol 0.083% 2.5 MG/3 ML Neb Soln NEB SCH ×4 (07:14→21:32)
[2017-01-23] MEDS: Ferrous Sulfate 325 MG Tab PO SCH ×2 (08:45→18:23)
[2017-01-23] MEDS: predniSONE 10 MG Tab PO SCH (08:47)
[2017-01-23] MEDS: Aspirin 81 MG Tab.Chew PO SCH (08:48)
[2017-01-23] MEDS: Tiotropium Inhaler 18 MCG Inhalation Powder Cap Kit of 5 INH SCH (08:49)
[2017-01-23] MEDS: Polyethylene Glycol 3350 Powder 17 GM Packet PO SCH (08:51)
[2017-01-23] MEDS: Sertraline 100 MG Tab PO SCH ×2 (08:51→21:33)
[2017-01-23] MEDS: Spironolactone 25 MG Tab PO SCH (08:54)
[2017-01-23] MEDS: Furosemide 40 MG Tab PO SCH (08:56)
[2017-01-23] MEDS: ALPRAZolam 0.25 MG Tab PO PRN (10:14)
[2017-01-23] MEDS: Albuterol 0.083% 2.5 MG/3 ML Neb Soln NEB PRN (14:10)
[2017-01-23] MEDS: Warfarin 4 MG Tab PO SCH (16:16)
[2017-01-23] MEDS: Dutasteride 0.5 MG Cap PO SCH (21:32)
[2017-01-23] MEDS: Simvastatin 40 MG Tab PO SCH (21:33)
[2017-01-23] MEDS: Tamsulosin 0.4 MG Cap.ER PO SCH (21:33)
[2017-01-24] MEDS: Albuterol 0.083% 2.5 MG/3 ML Neb Soln NEB SCH ×4 (07:07→21:06)
[2017-01-24] MEDS: Budesonide 0.5 MG/2 ML Neb Susp INH SCH ×2 (07:07→21:06)
[2017-01-24] MEDS: Ferrous Sulfate 325 MG Tab PO SCH ×2 (09:02→17:25)
[2017-01-24] MEDS: predniSONE 10 MG Tab PO SCH (09:03)
[2017-01-24] MEDS: Spironolactone 25 MG Tab PO SCH (09:03)
[2017-01-24] MEDS: Aspirin 81 MG Tab.Chew PO SCH (09:03)
[2017-01-24] MEDS: Sertraline 100 MG Tab PO SCH ×2 (09:04→20:23)
[2017-01-24] MEDS: Polyethylene Glycol 3350 Powder 17 GM Packet PO SCH (09:04)
[2017-01-24] MEDS: Tiotropium Inhaler 18 MCG Inhalation Powder Cap Kit of 5 INH SCH (09:04)
[2017-01-24] MEDS: Furosemide 40 MG Tab PO SCH (11:16)
[2017-01-24] MEDS: ALPRAZolam 0.25 MG Tab PO PRN (11:16)
[2017-01-24] MEDS: Warfarin 4 MG Tab PO SCH (17:25)
[2017-01-24] MEDS: Dutasteride 0.5 MG Cap PO SCH (20:23)
[2017-01-24] MEDS: Simvastatin 40 MG Tab PO SCH (20:23)
[2017-01-24] MEDS: Tamsulosin 0.4 MG Cap.ER PO SCH (20:23)
[2017-01-25] MEDS: ALPRAZolam 0.25 MG Tab PO PRN ×3 (05:16→19:37)
[2017-01-25] MEDS: Albuterol 0.083% 2.5 MG/3 ML Neb Soln NEB PRN (05:19)
[2017-01-25] MEDS: Albuterol 0.083% 2.5 MG/3 ML Neb Soln NEB SCH ×4 (07:07→21:23)
[2017-01-25] MEDS: Budesonide 0.5 MG/2 ML Neb Susp INH SCH ×2 (07:07→21:23)
[2017-01-25] MEDS: Polyethylene Glycol 3350 Powder 17 GM Packet PO SCH (09:00)
[2017-01-25] MEDS: Ferrous Sulfate 325 MG Tab PO SCH ×2 (09:00→17:58)
[2017-01-25] MEDS: Furosemide 40 MG Tab PO SCH (09:00)
[2017-01-25] MEDS: Spironolactone 25 MG Tab PO SCH (09:00)
[2017-01-25] MEDS: Aspirin 81 MG Tab.Chew PO SCH (09:00)
[2017-01-25] MEDS: predniSONE 10 MG Tab PO SCH (09:00)
[2017-01-25] MEDS: Tiotropium Inhaler 18 MCG Inhalation Powder Cap Kit of 5 INH SCH (09:01)
[2017-01-25] MEDS: Sertraline 100 MG Tab PO SCH ×2 (09:01→21:23)
[2017-01-25] MEDS: traMADol 50 MG Tab PO PRN (09:58)
[2017-01-25] MEDS ORDERED: predniSONE 10 MG Tab PO ONE (13:11)
--- NOTE | 2017-01-25 15:58 | CR ---
INDICATION: Increasing shortness of breath. CHEST: AP and lateral views of the chest 01/25/2017 were compared with 2016 and 01/07/2017, revealing the heart to be enlarged as previously, the aorta tortuous to a mild degree and calcified in the arch mainly. Post median sternotomy change is noted as previously. There are again noted bibasilar pleuroparenchymal changes which may be on the basis of pneumonia and pleuritis. Upper lung field pulmonary vasculature appears slightly less prominent, raising question of early resolving CHF. Interstitial changes remain present, which may be on the basis of edema and/or fibrosis. IMPRESSION: 1. Except for findings suggesting early resolving CHF, fairly stable appearance of the chest. 2. Bibasilar pleuroparenchymal changes, which may be on the basis of pneumonia and pleuritis and possibly fibrosis. 3. Probable COPD. 4. DJD spine. 5. ASHD with cardiomegaly and post median sternotomy change. MTDD
[2017-01-25] MEDS: Warfarin 4 MG Tab PO SCH (16:24)
[2017-01-25] MEDS: Simvastatin 40 MG Tab PO SCH (21:23)
[2017-01-25] MEDS: Dutasteride 0.5 MG Cap PO SCH (21:23)
[2017-01-25] MEDS: Tamsulosin 0.4 MG Cap.ER PO SCH (21:23)
[2017-01-26] MEDS: Albuterol 0.083% 2.5 MG/3 ML Neb Soln NEB SCH ×4 (07:14→21:06)
[2017-01-26] MEDS: Budesonide 0.5 MG/2 ML Neb Susp INH SCH ×2 (07:14→21:08)
[2017-01-26] MEDS: predniSONE 20 MG Tab PO SCH (08:30)
[2017-01-26] MEDS: Ferrous Sulfate 325 MG Tab PO SCH ×2 (08:30→17:45)
[2017-01-26] MEDS: Tiotropium Inhaler 18 MCG Inhalation Powder Cap Kit of 5 INH SCH (08:31)
[2017-01-26] MEDS: Polyethylene Glycol 3350 Powder 17 GM Packet PO SCH (08:31)
[2017-01-26] MEDS: Furosemide 40 MG Tab PO SCH (08:31)
[2017-01-26] MEDS: Spironolactone 25 MG Tab PO SCH (08:31)
[2017-01-26] MEDS: Aspirin 81 MG Tab.Chew PO SCH (08:31)
[2017-01-26] MEDS: Sertraline 100 MG Tab PO SCH ×2 (08:32→21:09)
[2017-01-26] MEDS: ALPRAZolam 0.25 MG Tab PO PRN ×2 (11:28→21:10)
[2017-01-26] MEDS: Warfarin 4 MG Tab PO SCH (16:37)
[2017-01-26] MEDS: Dutasteride 0.5 MG Cap PO SCH (21:05)
[2017-01-26] MEDS: Tamsulosin 0.4 MG Cap.ER PO SCH (21:06)
[2017-01-26] MEDS: Simvastatin 40 MG Tab PO SCH (21:09)
[2017-01-27] MEDS: Albuterol 0.083% 2.5 MG/3 ML Neb Soln NEB SCH ×2 (07:17→11:05)
[2017-01-27] MEDS: Budesonide 0.5 MG/2 ML Neb Susp INH SCH (07:17)
[2017-01-27] MEDS: predniSONE 20 MG Tab PO SCH (09:06)
[2017-01-27] MEDS: Ferrous Sulfate 325 MG Tab PO SCH (09:06)
[2017-01-27] MEDS: Aspirin 81 MG Tab.Chew PO SCH (09:06)
[2017-01-27] MEDS: Spironolactone 25 MG Tab PO SCH (09:06)
[2017-01-27] MEDS: Furosemide 40 MG Tab PO SCH (09:07)
[2017-01-27] MEDS: Sertraline 100 MG Tab PO SCH (09:07)
[2017-01-27] MEDS: Polyethylene Glycol 3350 Powder 17 GM Packet PO SCH (09:07)
[2017-01-27] MEDS: Tiotropium Inhaler 18 MCG Inhalation Powder Cap Kit of 5 INH SCH (09:07)
[2017-01-27] MEDS: ALPRAZolam 0.25 MG Tab PO PRN (09:55)
[2017-01-27 10:11] VITALS: BP 99/56
--- NOTE | 2017-01-27 15:53 | DISCH ---
DISCHARGE DATE: 01/26/2017 REASON FOR ADMISSION: 1. Physical deconditioning. 2. Chronic obstructive pulmonary disease. 3. Congestive heart failure. 4. Atrial fibrillation. 5. Chronic anemia. 6. Parkinsonism. 7. Palliative care status. 8. Dementia. 9. Anxiety. DISCHARGE DIAGNOSES: 1. Physical deconditioning. 2. Chronic obstructive pulmonary disease. 3. Congestive heart failure. 4. Atrial fibrillation. 5. Chronic anemia. 6. Parkinsonism. 7. Palliative care status. 8. Dementia. 9. Anxiety. BRIEF HISTORY: This is an 82-year-old male, who was admitted to swing bed for physical strengthening, chronic CHF, COPD with hypoxia, weakness, on long-term anticoagulation use, and was treated with full physical and occupational therapy. He had some episodes of anxiety the needed some Xanax. His pain was stable on tramadol as needed. He was discharged from the swing bed today on January 27. I did have a discussion with the daughter before discharge who is a pharmacist in [place]. She is concerned about his addiction of controlled substances, especially hydrocodone and Xanax and she suggested and I agreed that we should discontinue those medications. DISCHARGE MEDICATIONS: He will go home on the following medications: Acetaminophen p.r.n., albuterol p.r.n., aspirin, Pulmicort b.i.d., Avodart 0.5 mg at bedtime, ferrous sulfate 325 mg b.i.d., Lasix 40 mg daily, omeprazole 10 mg daily p.r.n., sertraline 100 mg b.i.d., simvastatin 40 mg at bedtime, Aldactone 25 mg daily, Flomax 0.4 mg at bedtime, Spiriva, Coumadin as needed, prednisone 10 mg to complete on 01/30/2017. FOLLOWUP: He will see his PCP at the [facility] next week on Tuesday. Please note that I spent more than 35 minutes in the discharge of this patient. /[id number] MARCELLUS/TENISHA
[2017-01-28 18:09] LABS: UNSATURATED IRON BIND CAPACITY 229 ug/dL (112-347)
== END 2017-01-27 14:00 | disposition home health service (06) | DRG 948 ==
LOC: FB.MS 10:40
PROVIDERS: ADMIT Family Medicine; ATTEND Family Medicine
DX: R53.81 Other malaise (principal); J44.1 Chronic obstructive pulmonary disease with (acute) exacerbation; I50.9 Heart failure, unspecified; I48.91 Unspecified atrial fibrillation; D64.9 Anemia, unspecified; G20 Parkinson's disease; Z51.5 Encounter for palliative care; F03.90 Unspecified dementia, unspecified severity, without behavioral disturbance, psychotic disturbance, mood disturbance, and anxiety; F41.9 Anxiety disorder, unspecified; Z79.01 Long term (current) use of anticoagulants; Z99.81 Dependence on supplemental oxygen; I25.10 Atherosclerotic heart disease of native coronary artery without angina pectoris; Z95.1 Presence of aortocoronary bypass graft; I27.2 Other secondary pulmonary hypertension
CPT/HCPCS: 36415; 71020; 80048; 81001; 82040; 82306; 82570; 82728; 83540; 83550; 83735; 83880; 83970; 84100; 84156; 85027; 85610; 93005; 94640-76; 97110-GO; 97110-GP; 97116-GP; 97530-GO-KX; 97530-GP; 97535-GO; A9270-GY

== ENCOUNTER 2017-01-27 15:06 | Inpatient (IN) | payer MEDICARE, OTHER ==
[2017-01-27] MEDS ORDERED: Acetaminophen 325 MG Tab PO PRN (18:59)
[2017-01-27] MEDS ORDERED: Docusate Sodium 100 MG Cap PO PRN (18:59)
[2017-01-27] MEDS ORDERED: Ondansetron 4 MG Tab.DIS PO PRN (18:59)
[2017-01-27] MEDS ORDERED: Omeprazole 20 MG Cap.CR PO PRN (19:06)
[2017-01-27] MEDS ORDERED: Nitroglycerin Lingual Spray 4.9 GM Canister TRLING PRN (19:06)
[2017-01-27] MEDS ORDERED: SIMVASTATIN 80 MG PO SCH (21:00)
[2017-01-27] MEDS: Dutasteride 0.5 MG Cap PO SCH (22:33)
[2017-01-27] MEDS: Albuterol/Ipratropium 3.0-0.5 MG/3 ML Neb Soln NEB SCH (22:34)
[2017-01-27] MEDS: Tamsulosin 0.4 MG Cap.ER PO SCH (22:35)
[2017-01-27] MEDS: Sertraline 100 MG Tab PO SCH (22:36)
[2017-01-27] MEDS: PERFOROMIST 20 MCG/2 ML NEB SCH (22:58)
[2017-01-27] MEDS: Budesonide 0.5 MG/2 ML Neb Susp**OWN MED INH SCH (23:26)
[2017-01-28] MEDS: Albuterol/Ipratropium 3.0-0.5 MG/3 ML Neb Soln NEB SCH ×4 (07:09→20:24)
[2017-01-28] MEDS ORDERED: predniSONE 20 MG Tab PO SCH (08:00)
--- NOTE | 2017-01-28 08:52 | PCM.HP ---
H&P History of Present Illness - General Date of Service: 01/28/17 Admit Problem/Dx: Admission Diagnosis/Problem Admission Diagnosis/Problem Hypoxia Source of Information: Patient - History of Present Illness Initial Comments - Free Text/Narative: This is an 82-year-old male patient with severe COPD, asthma and COPD was recently in the hospital in place and screening bed. He went home after being released to a swing bed for one hour and showed up again in the ER very anxious and short of breath. He states she's had some wheezing but no cough. He denies chest pain, fevers, chills. His leg swelling is better than it was before he was in the hospital. He says he had some panic. - Related Data Allergies/Adverse Reactions: Allergies Allergy/AdvReac Type Severity Reaction Status Date / Time No Known Allergies Allergy Verified 01/27/17 19:09 Home Medications: Home Meds Albuterol Sulfate [Proair Hfa] 2 puff IH Q6H PRN 08/16/14 [History] Budesonide [Pulmicort] 0.5 mg IH BID 08/16/14 [History] Calcium Carbonate/Vitamin D3 [Calcium 600 + Vit D Tablet] 1 tab PO DAILY [History] Dutasteride [Avodart] 0.5 mg PO BEDTIME 08/16/14 [History] Ferrous Sulfate 324 mg PO BIDM 08/16/14 [History] Multivitamin [Multivitamins] 1 cap PO DAILY 08/16/14 [History] Nitroglycerin [Nitrolingual] 1 spray SL Q5M PRN 08/16/14 [History] Omeprazole [Prilosec] 20 mg PO DAILY PRN 08/16/14 [History] Simvastatin [Zocor] 40 mg PO BEDTIME 08/16/14 [History] Tamsulosin [Flomax] 0.4 mg PO BEDTIME 08/16/14 [History] Aspirin 81 mg PO DAILY 08/03/15 [History] Formoterol [Perforomist] 1 vial NEB BID 09/06/16 [History] Sertraline [Zoloft] 100 mg PO BID 09/06/16 [History] Tiotropium [Spiriva Handihaler] 1 cap INH DAILY 09/06/16 [History] Warfarin Sodium 2 mg PO MOFR 01/04/17 [History] Warfarin Sodium 4 mg PO SUTUWETHSA 01/04/17 [History] Albuterol [IJD: Albuterol] 2.5 mg NEB Q4H PRN #0 nebule 01/12/17 [Rx] Albuterol [IJD: Albuterol] 2.5 mg NEB QIDRT nebule 01/12/17 [Rx] Polyethylene Glycol 3350 [MiraLAX] 17 gm PO DAILY packet 01/12/17 [Rx] Furosemide [Lasix] 40 mg PO DAILY #30 tablet 01/27/17 [Rx] LORazepam [Ativan] 0.5 mg PO BID #20 tablet 01/27/17 [Rx] Prednisone [IJD: predniSONE] 20 mg PO WITHBREAKFAST #6 tablet 01/27/17 [Rx] Spironolactone [Aldactone] 25 mg PO DAILY #30 tablet 01/27/17 [Rx] Past Medical History HEENT History: Reports: Hard of Hearing, Impaired Vision, Macular Degeneration Other HEENT History: recent nose bleeds with cautery Cardiovascular History: Reports: Afib, Bypass, CAD, Cardiomyopathy, Heart Failure, Heart Murmur, Hypertension, Pulmonary Hypertension, SOB on Exertion, Stents Respiratory History: Reports: Asthma, COPD, Pneumonia, Recurrent Other Respiratory History: Is on O2 @ 3L/NC Gastrointestinal History: Reports: Chronic Constipation Other Gastrointestinal History: takes Miralax daily Genitourinary History: Reports: BPH, Other (See Below) Other Genitourinary History: kidneys working at 50% Musculoskeletal History: Reports: Arthritis, Back Pain, Chronic, Neck Pain, Chronic Neurological History: Reports: Other (See Below) Other Neuro History: drop foot. states he had a seizure years ago "when he was drinking". Headchaches. Is forgetful Psychiatric History: Reports: Anxiety, Depression, Panic Attack Endocrine/Metabolic History: Reports: None Hematologic History: Reports: Anemia, Blood Transfusion(s) Immunologic History: Reports: None Oncologic (Cancer) History: Reports: None Dermatologic History: Reports: None - Infectious Disease History Infectious Disease History: Reports: Influenza, Measles, Mumps - Past Surgical History Head Surgeries/Procedures: Reports: None HEENT Surgical History: Reports: Cataract Surgery Cardiovascular Surgical History: Reports: Coronary Artery Bypass, Coronary Artery Stent Respiratory Surgical History: Reports: None GI Surgical History: Reports: Appendectomy, Cholecystectomy, Colostomy, Hernia Repair/Other Male Surgical History: Reports: Circumcision Neurological Surgical History: Reports: Other (See Below) Other Neurological Surgeries/Procedures: 2 low back surgeries and on surgery in neck Musculoskeletal Surgical History: Reports: Other (See Below) Other Musculoskeletal Surgeries/Procedures:: plate and screw in neck from surgery Oncologic Surgical History: Reports: None Dermatological Surgical History: Reports: None Social & Family History - Family History Family Medical History: Noncontributory - Tobacco Use Smoking Status *Q: Former Smoker Years of Tobacco use: 40 Packs/Tins Daily: 1.5 Used Tobacco, but Quit: Yes Month Tobacco Last Used: sept Second Hand Smoke Exposure: No - Caffeine Use Caffeine Use: Reports: Coffee Other Caffeine Use: 3-4 cups per day Caffeine Use Comment: small amouts of coffee - Alcohol Use Days Per Week of Alcohol Use: 0 - Recreational Drug Use Recreational Drug Use: No H&P Review of Systems - Review of Systems: Review Of Systems: See Below General: Reports: No Symptoms HEENT: Reports: No Symptoms Pulmonary: Reports: Shortness of Breath, Wheezing. Denies: Pleuritic Chest Pain , Cough, Sputum, Hemoptysis Cardiovascular: Reports: Dyspnea on Exertion, Edema. Denies: Chest Pain, Palpitations, Lightheadedness, Syncope Gastrointestinal: Reports: No Symptoms Genitourinary: Reports: No Symptoms Musculoskeletal: Reports: No Symptoms Skin: Reports: No Symptoms Psychiatric: Reports: Anxiety Neurological: Reports: Weakness Hematologic/Lymphatic: Reports: Easy Bruising Immunologic: Reports: No Symptoms Exam - Exam Exam: See Below - Vital Signs Vital Signs: Last Vital Signs Temp 97.9 F 01/28/17 07:27 Pulse 98 01/28/17 07:27 Resp 28 H 01/28/17 07:27 BP 93/60 01/28/17 07:27 Pulse Ox 75 L 01/28/17 07:27 Weight: 189 lb 6.4 oz - Exam Quality Assessment: Supplemental Oxygen General: Alert, Oriented, Cooperative HEENT: Hearing Intact, Mucosa Moist & [place], Posterior Pharynx Clear, TMs Clear. No: Abnormal Pupils, Rhinitis Neck: Supple, Trachea Midline. No: Carotid Bruit Lungs: Decreased Breath Sounds, Wheezing Cardiovascular: Regular Rate, Irregular Rhythm. No: Bradycardia, Tachycardia, Systolic Murmur, Diastolic Murmur Abdomen: Normal Bowel Sounds, Soft. No: Organomegaly, Peritoneal Signs, Distention, Guarding Back Exam: Normal Inspection, Full Range of Motion Extremities: Edema. No: Clubbing, Cyanosis Neuro Extensive - Mental Status: Alert. No: Oriented x3, Normal Mood/Affect ( anxious), Normal Cognition Psychiatric: Alert, Anxious. No: Depressed, Agitated, Suicidal Ideation *Q Meaningful Use (ADM) - VTE *Q VTE Criteria *Q: - Stroke *Q Stroke Criteria *Q: - AMI *Q AMI Criteria *Q: - Problem List (1) COPD (chronic obstructive pulmonary disease) SNOMED Code(s): 14821470 ICD Code: J44.9 - CHRONIC OBSTRUCTIVE PULMONARY DISEASE, UNSPECIFIED Status : Acute Current Visit: No (2) Congestive cardiomyopathy SNOMED Code(s): 378854968 ICD Code: I42.0 - DILATED CARDIOMYOPATHY Status: Acute Priority: High Current Visit: No (3) Afib SNOMED Code(s): 05599937 ICD Code: I48.91 - UNSPECIFIED ATRIAL FIBRILLATION Status: Chronic Current Visit: No Qualifiers: (4) Long-term (current) use of anticoagulants SNOMED Code(s): 018580032 ICD Code: Z79.01 - ENTERTAINMENT MANAGER (CURRENT) USE OF ANTICOAGULANTS Status: Chronic Priority: Medium Current Visit: No (5) Physical deconditioning SNOMED Code(s): 08711973557862 ICD Code: R53.81 - OTHER MALAISE Status: Chronic Priority: High Current Visit: No (6) Dementia SNOMED Code(s): 06229861 ICD Code: F03.90 - UNSPECIFIED DEMENTIA WITHOUT BEHAVIORAL DISTURBANCE Status: Suspected Priority: Medium Current Visit: No Problem List Initiated/Reviewed/Updated: Yes Orders Last 24hrs: Active Orders 24 hr Category Date Time Status EKG Documentation Completion [RC] ASDIRECTED Care 01/28/17 08:43 Ordered Oxygen Therapy [RC] PRN Care 01/27/17 21:34 Active RT Aerosol Therapy [RC] ASDIRECTED Care 01/27/17 19:04 Active VTE/DVT Education [RC] Per Unit Routine Care 01/27/17 21:34 Active Consult to Occupational Therapy [OT Evaluation and Cons 01/28/17 08:40 Ordered Treatment] [CONS] Routine Consult to Physical Therapy [PT Evaluation and Cons 01/28/17 08:40 Ordered Treatment] [CONS] Routine CXR [Chest 2V] [CR] Routine Exams 01/28/17 08:43 Ordered B-TYPE NATRIURETIC PEPTIDE,BNP [CHEM] AM Lab 01/29/17 08:45 Ordered CBC WITH AUTO DIFF [HEME] Routine Lab 01/28/17 08:42 Ordered COMPREHENSIVE METABOLIC PN,CMP [CHEM] Routine Lab 01/28/17 08:42 Ordered TROPONIN I [CHEM] Routine Lab 01/28/17 08:43 Ordered ALPRAZolam [Xanax] Med 01/28/17 09:00 Active 0.25 mg PO TID Acetaminophen [Tylenol] Med 01/27/17 18:59 Active 650 mg PO Q4H PRN Albuterol/Ipratropium [DuoNeb 3.0-0.5 MG/3 ML] Med 01/27/17 21:00 Active 3 ml NEB QIDRT Aspirin [Halfprin] Med 01/28/17 09:00 Active 81 mg PO DAILY Budesonide [Pulmicort] Med 01/27/17 21:00 Active 0.5 mg INH BID Calcium Carbonate/Vitamin D3 [Calcium Carbonate/Vitamin Med 01/28/17 09:00 Active D 1250 MG-200 Unit] 1 tab PO DAILY Docusate Sodium [Colace] Med 01/27/17 18:59 Active 100 mg PO BID PRN Dutasteride [Avodart] Med 01/27/17 21:00 Active 0.5 mg PO BEDTIME Ferrous Sulfate Med 01/27/17 19:15 Active 325 mg PO BIDM Furosemide [Lasix] Med 01/28/17 09:00 Active 40 mg PO DAILY Multivitamins [Tab-A-Jyothi] Med 01/28/17 09:00 Active 1 tab PO DAILY Nitroglycerin [Nitrolingual] Med 01/27/17 19:06 Active 0 gm TRLING Q5M PRN Omeprazole Med 01/27/17 19:06 Active 20 mg PO DAILY PRN Ondansetron [Zofran ODT] Med 01/27/17 18:59 Active 4 mg PO Q4H PRN Patient's Own Medication [Ptom] Med 01/27/17 21:00 Active 1 each NEB BID Polyethylene Glycol 3350 [MiraLAX] Med 01/28/17 09:00 Active 17 gm PO DAILY Sertraline [Zoloft] Med 01/27/17 21:00 Active 100 mg PO BID Simvastatin [Zocor] Med 01/27/17 21:00 Active 40 mg PO BEDTIME Spironolactone [Aldactone] Med 01/28/17 09:00 Active 25 mg PO DAILY Tamsulosin [Flomax] Med 01/27/17 21:00 Active 0.4 mg PO BEDTIME Tiotropium [Spiriva HandiHaler] Med 01/28/17 09:00 Active 18 mcg INH DAILY Warfarin [Coumadin] Med 01/28/17 19:06 Pending 2 mg PO MOFR Warfarin [Coumadin] Med 01/27/17 19:15 Pending 4 mg PO SUTUWETHSA methylPREDNISolone Sod Succ [Solu-MEDROL] Med 01/28/17 09:00 Ordered 125 mg IVPUSH DAILY Resuscitation Status Routine Resus Stat 01/27/17 21:34 Ordered EKG 12 Lead [EK] Routine Ther 01/28/17 08:43 Ordered Medication Orders Acetaminophen (Tylenol) 650 mg PO Q4H PRN PRN Reason: Pain (Mild 1-3)/fever Albuterol/Ipratropium (Duoneb 3.0-0.5 Mg/3 Ml) 3 ml NEB QIDRT [facility] Last Admin: 01/28/17 07:09 Dose: 3 ml Admin: 01/27/17 22:34 Dose: 3 ml Alprazolam (Xanax) 0.25 mg PO TID [facility] Aspirin (Halfprin) 81 mg PO DAILY [facility] Budesonide (Pulmicort) 0.5 mg INH BID [facility] Last Admin: 01/27/17 23:26 Dose: 0.5 mg Calcium Carbonate (Calcium Carbonate/Vitamin D 1250 Mg-200 Unit) 1 tab PO DAILY [facility] Docusate Sodium (Colace) 100 mg PO BID PRN PRN Reason: Constipation Dutasteride (Avodart) 0.5 mg PO BEDTIME [facility] Last Admin: 01/27/17 22:33 Dose: 0.5 mg Ferrous Sulfate (Ferrous Sulfate) [facility] Last Admin: 01/27/17 22:32 Dose: 325 mg Furosemide (Lasix) 40 mg PO DAILY [facility] Methylprednisolone Sodium Succinate (Solu-Medrol) 125 mg IVPUSH DAILY [facility] Multivitamins/Minerals/Vitamin C (Tab-A-Jyothi) 1 tab PO DAILY [facility] Nitroglycerin (Nitrolingual) 0 gm TRLING Q5M PRN PRN Reason: Chest Pain Omeprazole (Omeprazole) 20 mg PO DAILY PRN PRN Reason: Heartburn Ondansetron HCl (Zofran Odt) 4 mg PO Q4H PRN PRN Reason: nausea, able to take PO Patient's Own Medication 1 Each Perforomist 20 Mcg/2ml 1 each NEB BID [facility] Last Admin: 01/27/17 22:58 Dose: 1 each Polyethylene Glycol (Miralax) 17 gm PO DAILY [facility] Sertraline HCl (Zoloft) 100 mg PO BID [facility] Last Admin: 01/27/17 22:36 Dose: 100 mg Simvastatin (Zocor) 40 mg PO BEDTIME [facility] Last Admin: 01/27/17 22:35 Dose: 40 mg Spironolactone (Aldactone) 25 mg PO DAILY [facility] Tamsulosin HCl (Flomax) 0.4 mg PO BEDTIME [facility] Last Admin: 01/27/17 22:35 Dose: 0.4 mg Tiotropium [place] (Spiriva Handihaler) 18 mcg INH DAILY [facility] Warfarin Sodium (Coumadin) 2 mg PO MOFR [facility] Warfarin Sodium (Coumadin) 4 mg PO SUTUWETHSA [facility] Assessment/Plan Comment:: 1. He was initially placed in observation care. I will change him to inpatient because of the severeness of the shortness of breath. 2. Admitting physician did not do any labs or x-rays. I will do a chest x-ray , CMP, INR, troponin, BNP, CBC, UA, EKG. 3. Discussed with the patient that he probably should think about going to the residential. I also mention hospice in passing. 4. O2 nasal cannula to keep his saturations between 88-92% 5. Resume his home medicines. Stop prednisone and start Solu-Medrol 125 mg IV daily. 6. Daily weights, input and output. 7. Regular diet. 8. Up with assist. 9. Pharmacy to manage INR.
[2017-01-28] MEDS ORDERED: ALPRAZolam 0.25 MG Tab PO SCH (09:00)
[2017-01-28] MEDS ORDERED: Polyethylene Glycol 3350 Powder 238 GM Bot PO SCH (09:00)
[2017-01-28] MEDS ORDERED: methylPREDNISolone Sodium Succinate 125 MG/2 ML SDV IVPUSH SCH (09:00)
[2017-01-28] MEDS ORDERED: Warfarin Sliding Scale PO SCH (09:15)
[2017-01-28] MEDS: ALPRAZolam 0.25 MG Tab PO PRN ×3 (09:37→20:32)
[2017-01-28] MEDS: Calcium Carbonate/Vitamin D3 1250 MG-200 Unit Tab PO SCH (09:44)
[2017-01-28] MEDS: Furosemide 40 MG Tab PO SCH (09:44)
[2017-01-28] MEDS: Multivitamin Tab PO SCH (09:44)
[2017-01-28] MEDS: Spironolactone 25 MG Tab PO SCH (10:10)
[2017-01-28] MEDS: Aspirin 81 MG Tab.EC PO SCH (10:11)
[2017-01-28] MEDS: Tiotropium Inhaler 18 MCG Inhalation Powder Cap Kit of 5 INH SCH (10:11)
[2017-01-28] MEDS: Polyethylene Glycol 3350 Powder 17 GM Packet PO SCH (10:12)
[2017-01-28] MEDS: Sertraline 100 MG Tab PO SCH ×2 (10:12→20:28)
[2017-01-28] MEDS: Budesonide 0.5 MG/2 ML Neb Susp INH SCH ×2 (10:49→20:24)
[2017-01-28] MEDS: Budesonide 0.5 MG/2 ML Neb Susp**OWN MED INH SCH (11:06)
[2017-01-28] MEDS: PERFOROMIST 20 MCG/2 ML NEB SCH (11:06)
--- NOTE | 2017-01-28 12:04 | CR ---
INDICATION: Shortness of breath. CHEST: PA and lateral views of the chest 01/28/2017 were compared with 2016 and 01/10/2017, revealing an appearance of increasing pleuroparenchymal changes at the right lung base, stable at the left lung base. Findings may be on the basis of pneumonia and pleuritis, progressively more severe. Pulmonary vascular congestion appears to be decreased, suggesting resolving CHF. The heart is enlarged as previously, with evidence of median sternotomy again noted. Diminished bone density is compatible with osteoporosis, but should be correlated clinically. Degenerative changes are noted in the lower thoracic spine. The lungs appear to be somewhat hyperaerated, raising question of COPD. Fusion is noted at the cervical spine. IMPRESSION: 1. Continued bibasilar pleuroparenchymal changes, perhaps slightly less prominent at the left lung base, but significantly increased at the right lung base. 2. Resolving CHF is suggested. MTDD
--- NOTE | 2017-01-28 15:34 | ER ---
DATE SEEN: 01/27/2017 TIME SEEN: The patient was seen on arrival at 1535. CHIEF COMPLAINT: Shortness of breath, oxygen saturation. HISTORY OF PRESENT ILLNESS: The patient was just discharged this AM for [facility] for a 5-day hospitalization for severe chronic obstructive lung disease, deconditioning, congestive heart failure, atrial fibrillation, anemia, Parkinson's, dementia, and anxiety mediated bronchospasm and fear of . The patient was treated with oxygen therapy. There was a large family conference before the patient was discharged, with nurses present at the family conference. Mrs. Perez had lobbied against discharging him to the long term or onto hospice care. The was very committed to have him come home. She was to take care of him with her presumed support of her family. After he got home today, he became short of breath. He had a "breathing spell that was very similar to what he had in the hospital" where his oxygen saturation dropped down to 66%. At this, she became frightened. He became cyanotic, had difficulty breathing, became markedly anxious, and she called the ambulance to transport him back to the hospital for further evaluation. MEDICATIONS: 1. Prednisone. 2. Pulmicort. 3. Avodart. 4. Iron sulfate. 5. Lasix. 6. Omeprazole. 7. Sertraline. 8. Simvastatin. 9. Aldactone. 10.Flomax. 11.Spiriva. 12.Coumadin. PAST MEDICAL HISTORY: Significant for poor vision, macular degeneration, atrial fibrillation, bypass, coronary artery disease, cardiomyopathy, heart failure, heart murmur, pulmonary hypertension, COPD with exacerbation, chronic oxygen use at home, chronic constipation, BNP, chronic back pain, anxiety, and blood transfusions in the past for previous surgery. PAST SURGICAL HISTORY: Cataract surgery, coronary bypass, coronary stents, appendectomy, cholecystectomy, and hernia repair. REVIEW OF SYSTEMS: Negative except as noted above with shortness of breath and weakness. He denies chest pain. PHYSICAL EXAMINATION: VITAL SIGNS: Blood pressure 103/83, heart rate 94 and irregular rate, oxygen saturation 100% on 6 L O2, and respiratory rate 26. Once O2 was decreased to 4 L, O2 dropped from 88% to 76%. On 5 L of nasal cannula he started talking or coughing, his oxygen saturation went down his 66%. GENERAL: The patient is alert and talkative and his oxygen saturation drops when he talks. Mildly cachectic. HEENT: He has poor hearing. PERRLA intact. Pharynx normal mucosa. No dehydration. No thyromegaly or masses. NECK: No bruits. LUNGS: Decreased air exchange. Moderate accessory muscle use. HEART: S1, S2. S2 is greater than S1. Irregular rhythm noted. ABDOMEN: Soft. No guarding. No abdominal discomfort. He has mild distention. No pain in the abdomen. Bowel sounds present. EXTREMITIES: 3+ pedal edema. Lymphedema. He has wraps on his extremity. NEUROLOGIC: Hypoactive upper extremities. Absent knee jerks, ankle jerks. Sensation intact. He has clubbing. EMERGENCY DEPARTMENT COURSE: The patient's status was followed. No labs were obtained, (as he has just been in the hospital and had extensive work up). It is apparent that when he starts talking or even tries to move about in bed or starts coughing, his oxygen saturation drops to 66% even while on 5 L NC O2. Then, it gradually progressively increases going back to above 90%. After a long discussion with his , the patient and [id number], it is apparent that she cannot manage him at home, and the family is not commited to helping his to care for him at home. She was ill prepared for to her what was unexpected hypoxia and respiratory arrest like symptoms. (She had not spent a day managing him in the hospital before taking him home, so she did not realize the stress that he creates for her when he has these anxiety filled, fear of cyanotic spells, with oxygen desaturation below 66%. He also notes he has chronic anxiety and he has used Xanax in the past, but has not been discharged on Xanax. DIAGNOSIS ; SEVERE COPD, SEVER HYPOXIC EPISODES FILLED WITH HIS EXTREME FEAR OF IMPENDING ; FAILURE OF THE 'S AND THE FAMILY'S APPRECIATION FOR THE CRITICAL AND TENUOUS POTENTIAL FOR LIFE THREATENING RESPIRATORY ARREST. This consensus was that the patient should be readmitted after she realized she could not care for him at home and that he probably will be going to long term. He has marginal respiratory reserve and marked COPD with exacerbation. No changes in medications. The patient is admitted and arrangements will be made for further long term placement. She finally accepted the fact that she cannot manage him at home. /[id number] [place]UM[place]/TENISHA GURROLA
[2017-01-28] MEDS ORDERED: Warfarin 2 MG Tab PO SCH (16:00)
[2017-01-28] MEDS: Sodium Chloride 0.9% 10 ML Syringe FLUSH PRN (16:30)
--- NOTE | 2017-01-28 17:11 | PCM.PN ---
- General Info Date of Service: 01/28/17 Admission Dx/Problem (Free Text): Patient states he still short of breath when he sits up at the side of his bed. He denies coughing but his daughter states she's coughing. No fevers or chills. - Patient Data Vitals - most recent: Last Vital Signs Temp 98.4 F 01/28/17 16:00 Pulse 79 01/28/17 16:00 Resp 20 01/28/17 16:00 BP 113/63 01/28/17 16:00 Pulse Ox 88 L 01/28/17 16:00 Weight - most recent: 189 lb 6.4 oz I&O - last 24 hours: Intake & Output 01/28/17 01/28/17 01/28/17 06:59 14:59 22:59 Intake Total 720 Balance 720 Lab Results last 24 hrs: Laboratory Results - last 24 hr 01/28/17 01/28/17 01/28/17 Range/Units 09:00 09:00 09:00 WBC 6.4 (4.5-12.0) X10-3/uL RBC 2.94 L (4.30-5.75) x10(6)uL Hgb 9.6 L (11.5-15.5) g/dL Hct 29.6 L (30.0-51.3) % MCV 100.5 H (80-96) fL MCH 32.6 (27.7-33.6) pg MCHC 32.4 (32.2-35.4) g/dL RDW 16.8 H (11.5-15.5) % Plt Count 89 L (125-369) X10(3)uL MPV 7.6 (7.4-10.4) fL Add Manual Diff Yes Neutrophils % (Manual) 88 H (46-82) % Lymphocytes % (Manual) 6 L (13-37) % Monocytes % (Manual) 5 (4-12) % Eosinophils % (Manual) 1 (0-5) % Anisocytosis Few PT (8.7-11.1) INR (0.89-1.13) Sodium 139 (135-145) mmol/L Potassium 4.8 (3.5-5.3) mmol/L Chloride 103 (100-110) mmol/L Carbon Dioxide 28 (23-29) mmol/L BUN 35 H (8-23) mg/dL Creatinine 1.0 (0.6-1.3) mg/dL Est Cr Clr Drug Dosing 48.69 mL/min Estimated GFR (MDRD) > 60 (>60) BUN/Creatinine Ratio 35.0 H (9-20) Glucose 152 H (80-116) mg/dL Calcium 8.8 (8.6-10.2) mg/dL Total Bilirubin 1.0 (0.1-1.3) mg/dL AST 27 D (5-27) IU/L ALT 25 D (14-26) IU/L Alkaline Phosphatase 76 (56-112) IU/L Troponin I (0.02-0.06) NG/ML Total Protein 6.2 (6.0-8.0) g/dL Albumin 3.7 (3.2-4.6) g/dL Globulin 2.5 g/dL Albumin/Globulin Ratio 1.5 /05/08 Range/Units 09:00 WBC (4.5-12.0) X10-3/uL RBC (4.30-5.75) x10(6)uL Hgb (11.5-15.5) g/dL Hct (30.0-51.3) % MCV (80-96) fL MCH (27.7-33.6) pg MCHC (32.2-35.4) g/dL RDW (11.5-15.5) % Plt Count (125-369) X10(3)uL MPV (7.4-10.4) fL Add Manual Diff Neutrophils % (Manual) (46-82) % Lymphocytes % (Manual) (13-37) % Monocytes % (Manual) (4-12) % Eosinophils % (Manual) (0-5) % Anisocytosis PT 27.7 H (8.7-11.1) INR 2.69 H (0.89-1.13) Sodium (135-145) mmol/L Potassium (3.5-5.3) mmol/L Chloride (100-110) mmol/L Carbon Dioxide (23-29) mmol/L BUN (8-23) mg/dL Creatinine (0.6-1.3) mg/dL Est Cr Clr Drug Dosing mL/min Estimated GFR (MDRD) (>60) BUN/Creatinine Ratio (9-20) Glucose (80-116) mg/dL Calcium (8.6-10.2) mg/dL Total Bilirubin (0.1-1.3) mg/dL AST (5-27) IU/L ALT (14-26) IU/L Alkaline Phosphatase (56-112) IU/L Troponin I (0.02-0.06) NG/ML Total Protein (6.0-8.0) g/dL Albumin (3.2-4.6) g/dL Globulin g/dL Albumin/Globulin Ratio Med Orders - Current: Current Medications Acetaminophen (Tylenol) 650 mg PO Q4H PRN PRN Reason: Pain (Mild 1-3)/fever Albuterol/Ipratropium (Duoneb 3.0-0.5 Mg/3 Ml) 3 ml NEB QIDRT [facility] Last Admin: 01/28/17 15:06 Dose: 3 ml Albuterol/Ipratropium (Duoneb 3.0-0.5 Mg/3 Ml) 3 ml INH Q4H PRN PRN Reason: SHORTNESS OF BREATH Alprazolam (Xanax) 0.25 mg PO TID PRN PRN Reason: anxiety Last Admin: 01/28/17 14:28 Dose: 0.25 mg Aspirin (Halfprin) 81 mg PO DAILY [facility] Last Admin: 01/28/17 10:11 Dose: 81 mg Budesonide (Pulmicort) 0.5 mg INH BIDRT [facility] Last Admin: 01/28/17 10:49 Dose: 0.5 mg Calcium Carbonate (Calcium Carbonate/Vitamin D 1250 Mg-200 Unit) 1 tab PO DAILY [facility] Last Admin: 01/28/17 09:44 Dose: 1 tab Docusate Sodium (Colace) 100 mg PO BID PRN PRN Reason: Constipation Dutasteride (Avodart) 0.5 mg PO BEDTIME [facility] Last Admin: 01/27/17 22:33 Dose: 0.5 mg Ferrous Sulfate (Ferrous Sulfate) 325 mg PO BIDM [facility] Last Admin: 01/28/17 10:10 Dose: 325 mg Furosemide (Lasix) 40 mg PO DAILY [facility] Last Admin: 01/28/17 09:44 Dose: 40 mg Methylprednisolone Sodium Succinate (Solu-Medrol) 125 mg IVPUSH DAILY [facility] Last Admin: 01/28/17 09:47 Dose: 125 mg Multivitamins/Minerals/Vitamin C (Tab-A-Jyothi) 1 tab PO DAILY [facility] Last Admin: 01/28/17 09:44 Dose: 1 tab Nitroglycerin (Nitrolingual) 0 gm TRLING Q5M PRN PRN Reason: Chest Pain Omeprazole (Omeprazole) 20 mg PO DAILY PRN PRN Reason: Heartburn Ondansetron HCl (Zofran Odt) 4 mg PO Q4H PRN PRN Reason: nausea, able to take PO Polyethylene Glycol (Miralax) 17 gm PO DAILY [facility] Last Admin: 01/28/17 10:12 Dose: 17 gm Sertraline HCl (Zoloft) 100 mg PO BID [facility] Last Admin: 01/28/17 10:12 Dose: 100 mg Simvastatin (Zocor) 40 mg PO BEDTIME [facility] Sodium Chloride (Saline Flush) 10 ml FLUSH ASDIRECTED PRN PRN Reason: Other Spironolactone (Aldactone) 25 mg PO DAILY [facility] Last Admin: 01/28/17 10:10 Dose: 25 mg Tamsulosin HCl (Flomax) 0.4 mg PO BEDTIME [facility] Last Admin: 01/27/17 22:35 Dose: 0.4 mg Tiotropium [place] (Spiriva Handihaler) 18 mcg INH DAILY [facility] Last Admin: 01/28/17 10:11 Dose: 18 mcg Warfarin Sodium (Coumadin) 2 mg PO MoFr@1600 [facility] Last Admin: 01/28/17 16:46 Dose: 2 mg Warfarin Sodium (Coumadin) 4 mg PO SuTuWeThSa@1600 [facility] Warfarin Sodium (Coumadin Sliding Scale) 1 each PO ASDIRECTED [facility] Discontinued Medications Alprazolam (Xanax) 0.25 mg PO TID [facility] Last Admin: 01/28/17 11:06 Dose: Not Given Budesonide (Pulmicort) 0.5 mg INH BID [facility] Last Admin: 01/28/17 11:06 Dose: Not Given Patient's Own Medication 1 Each Perforomist 20 Mcg/2ml 1 each NEB BID [facility] Last Admin: 01/28/17 11:06 Dose: Not Given Polyethylene Glycol (Miralax) 17 gm PO DAILY [facility] Last Admin: 01/28/17 11:06 Dose: Not Given Prednisone (Prednisone) 20 mg PO WITHBREAKFAST [facility] Last Admin: 01/28/17 11:05 Dose: Not Given Simvastatin (Zocor) 40 mg PO BEDTIME [facility] Last Admin: 01/27/17 22:35 Dose: 40 mg - Exam General: alert, cooperative Lungs: Decreased breath sounds, Wheezing - Problem List & Annotations (1) COPD (chronic obstructive pulmonary disease) SNOMED Code(s): 98481299 Code(s): J44.9 - CHRONIC OBSTRUCTIVE PULMONARY DISEASE, UNSPECIFIED Status : Acute Current Visit: No (2) Congestive cardiomyopathy SNOMED Code(s): 312622715 Code(s): I42.0 - DILATED CARDIOMYOPATHY Status: Acute Priority: High Current Visit: No (3) Afib SNOMED Code(s): 59926590 Code(s): I48.91 - UNSPECIFIED ATRIAL FIBRILLATION Status: Chronic Current Visit: No Qualifiers: (4) Long-term (current) use of anticoagulants SNOMED Code(s): 305034872 Code(s): Z79.01 - CENTRAL [employer]Y TECHNICIAN (CURRENT) USE OF ANTICOAGULANTS Status: Chronic Priority: Medium Current Visit: No (5) Physical deconditioning SNOMED Code(s): 87982277568879 Code(s): R53.81 - OTHER MALAISE Status: Chronic Priority: High Current Visit: No (6) Dementia SNOMED Code(s): 49232559 Code(s): F03.90 - UNSPECIFIED DEMENTIA WITHOUT BEHAVIORAL DISTURBANCE Status: Suspected Priority: Medium Current Visit: No (7) Palliative care status SNOMED Code(s): 719651726 Code(s): Z51.5 - ENCOUNTER FOR PALLIATIVE CARE Status: Acute Current Visit: Yes - Problem List Review Problem List Initiated/Reviewed/Updated: Yes - My Orders Last 24 Hours: My Active Orders 01/28/17 08:53 Daily Weight [Height and Weight] [RC] 07 UA W/MICROSCOPIC [URIN] Routine 01/28/17 09:15 Warfarin Sliding Scale [Coumadin Sliding Scale] 1 each PO ASDIRECTED 01/28/17 09:34 ALPRAZolam [Xanax] 0.25 mg PO TID PRN 01/28/17 10:34 Albuterol/Ipratropium [DuoNeb 3.0-0.5 MG/3 ML] 3 ml INH Q4H PRN 01/28/17 16:47 Sodium Chloride 0.9% [Saline Flush] 10 ml FLUSH ASDIRECTED PRN 01/29/17 09:15 INR,PT,PROTHROMBIN TIME [COAG] DAILY 01/30/17 09:15 INR,PT,PROTHROMBIN TIME [COAG] DAILY 01/31/17 09:15 INR,PT,PROTHROMBIN TIME [COAG] DAILY - Plan Plan:: 1. continue current care.
[2017-01-28] MEDS: Dutasteride 0.5 MG Cap PO SCH (20:27)
[2017-01-28] MEDS: Tamsulosin 0.4 MG Cap.ER PO SCH (20:27)
[2017-01-28] MEDS: Simvastatin 40 MG Tab PO SCH (20:28)
[2017-01-29] MEDS: Albuterol/Ipratropium 3.0-0.5 MG/3 ML Neb Soln INH PRN ×2 (02:23→14:31)
[2017-01-29] MEDS: Budesonide 0.5 MG/2 ML Neb Susp INH SCH ×2 (07:10→20:24)
[2017-01-29] MEDS: Albuterol/Ipratropium 3.0-0.5 MG/3 ML Neb Soln NEB SCH ×4 (07:10→20:26)
--- NOTE | 2017-01-29 07:31 | PCM.PN ---
- General Info Date of Service: 01/29/17 Admission Dx/Problem (Free Text): Patient states he's short of breath. He says that the same disease been for a long time. Has a little bit of cough. He states he has some wheezing. No fevers, chills, nasal congestion, sore throat, ear pain. - Patient Data Vitals - most recent: Last Vital Signs Temp 97.9 F 01/29/17 02:00 Pulse 98 01/29/17 02:00 Resp 32 H 01/29/17 02:00 BP 117/71 01/29/17 02:00 Pulse Ox 94 L 01/29/17 05:00 Weight - most recent: 190 lb 6.4 oz Lab Results last 24 hrs: Laboratory Results - last 24 hr 01/28/17 01/28/17 01/28/17 Range/Units 09:00 09:00 09:00 WBC 6.4 (4.5-12.0) X10-3/uL RBC 2.94 L (4.30-5.75) x10(6)uL Hgb 9.6 L (11.5-15.5) g/dL Hct 29.6 L (30.0-51.3) % MCV 100.5 H (80-96) fL MCH 32.6 (27.7-33.6) pg MCHC 32.4 (32.2-35.4) g/dL RDW 16.8 H (11.5-15.5) % Plt Count 89 L (125-369) X10(3)uL MPV 7.6 (7.4-10.4) fL Add Manual Diff Yes Neutrophils % (Manual) 88 H (46-82) % Lymphocytes % (Manual) 6 L (13-37) % Monocytes % (Manual) 5 (4-12) % Eosinophils % (Manual) 1 (0-5) % Anisocytosis Few PT (8.7-11.1) INR (0.89-1.13) Sodium 139 (135-145) mmol/L Potassium 4.8 (3.5-5.3) mmol/L Chloride 103 (100-110) mmol/L Carbon Dioxide 28 (23-29) mmol/L BUN 35 H (8-23) mg/dL Creatinine 1.0 (0.6-1.3) mg/dL Est Cr Clr Drug Dosing 48.69 mL/min Estimated GFR (MDRD) > 60 (>60) BUN/Creatinine Ratio 35.0 H (9-20) Glucose 152 H (80-116) mg/dL Calcium 8.8 (8.6-10.2) mg/dL Total Bilirubin 1.0 (0.1-1.3) mg/dL AST 27 D (5-27) IU/L ALT 25 D (14-26) IU/L Alkaline Phosphatase 76 (56-112) IU/L Troponin I (0.02-0.06) NG/ML B-Natriuretic Peptide (0-100) pg/mL Total Protein 6.2 (6.0-8.0) g/dL Albumin 3.7 (3.2-4.6) g/dL Globulin 2.5 g/dL Albumin/Globulin Ratio 1.5 01/28/17 01/28/17 01/29/17 Range/Units 09:00 09:00 06:00 WBC (4.5-12.0) X10-3/uL RBC (4.30-5.75) x10(6)uL Hgb (11.5-15.5) g/dL Hct (30.0-51.3) % MCV (80-96) fL MCH (27.7-33.6) pg MCHC (32.2-35.4) g/dL RDW (11.5-15.5) % Plt Count (125-369) X10(3)uL MPV (7.4-10.4) fL Add Manual Diff Neutrophils % (Manual) (46-82) % Lymphocytes % (Manual) (13-37) % Monocytes % (Manual) (4-12) % Eosinophils % (Manual) (0-5) % Anisocytosis PT 27.7 H 24.0 H (8.7-11.1) INR 2.69 H 2.34 H (0.89-1.13) Sodium (135-145) mmol/L Potassium (3.5-5.3) mmol/L Chloride (100-110) mmol/L Carbon Dioxide (23-29) mmol/L BUN (8-23) mg/dL Creatinine (0.6-1.3) mg/dL Est Cr Clr Drug Dosing mL/min Estimated GFR (MDRD) (>60) BUN/Creatinine Ratio (9-20) Glucose (80-116) mg/dL Calcium (8.6-10.2) mg/dL Total Bilirubin (0.1-1.3) mg/dL AST (5-27) IU/L ALT (14-26) IU/L Alkaline Phosphatase (56-112) IU/L Troponin I (0.02-0.06) NG/ML B-Natriuretic Peptide 336 H (0-100) pg/mL Total Protein (6.0-8.0) g/dL Albumin (3.2-4.6) g/dL Globulin g/dL Albumin/Globulin Ratio Med Orders - Current: Current Medications Acetaminophen (Tylenol) 650 mg PO Q4H PRN PRN Reason: Pain (Mild 1-3)/fever Albuterol/Ipratropium (Duoneb 3.0-0.5 Mg/3 Ml) 3 ml NEB QIDRT [facility] Last Admin: 01/29/17 07:10 Dose: 3 ml Albuterol/Ipratropium (Duoneb 3.0-0.5 Mg/3 Ml) 3 ml INH Q4H PRN PRN Reason: SHORTNESS OF BREATH Last Admin: 01/29/17 02:23 Dose: 3 ml Alprazolam (Xanax) 0.25 mg PO TID PRN PRN Reason: anxiety Last Admin: 01/28/17 20:32 Dose: 0.25 mg Aspirin (Halfprin) 81 mg PO DAILY [facility] Last Admin: 01/28/17 10:11 Dose: 81 mg Budesonide (Pulmicort) 0.5 mg INH BIDRT [facility] Last Admin: 01/29/17 07:10 Dose: 0.5 mg Calcium Carbonate (Calcium Carbonate/Vitamin D 1250 Mg-200 Unit) 1 tab PO DAILY [facility] Last Admin: 01/28/17 09:44 Dose: 1 tab Docusate Sodium (Colace) 100 mg PO BID PRN PRN Reason: Constipation Dutasteride (Avodart) 0.5 mg PO BEDTIME [facility] Last Admin: 01/28/17 20:27 Dose: 0.5 mg Ferrous Sulfate (Ferrous Sulfate) 325 mg PO BIDM [facility] Last Admin: 01/28/17 18:44 Dose: 325 mg Furosemide (Lasix) 40 mg PO DAILY [facility] Last Admin: 01/28/17 09:44 Dose: 40 mg Methylprednisolone Sodium Succinate (Solu-Medrol) 125 mg IVPUSH DAILY [facility] Last Admin: 01/28/17 09:47 Dose: 125 mg Multivitamins/Minerals/Vitamin C (Tab-A-Jyothi) 1 tab PO DAILY [facility] Last Admin: 01/28/17 09:44 Dose: 1 tab Nitroglycerin (Nitrolingual) 0 gm TRLING Q5M PRN PRN Reason: Chest Pain Omeprazole (Omeprazole) 20 mg PO DAILY PRN PRN Reason: Heartburn Ondansetron HCl (Zofran Odt) 4 mg PO Q4H PRN PRN Reason: nausea, able to take PO Polyethylene Glycol (Miralax) 17 gm PO DAILY [facility] Last Admin: 01/28/17 10:12 Dose: 17 gm Sertraline HCl (Zoloft) 100 mg PO BID [facility] Last Admin: 01/28/17 20:28 Dose: 100 mg Simvastatin (Zocor) 40 mg PO BEDTIME [facility] Last Admin: 01/28/17 20:28 Dose: 40 mg Sodium Chloride (Saline Flush) 10 ml FLUSH ASDIRECTED PRN PRN Reason: Other Last Admin: 01/28/17 16:30 Dose: 10 ml Spironolactone (Aldactone) 25 mg PO DAILY [facility] Last Admin: 01/28/17 10:10 Dose: 25 mg Tamsulosin HCl (Flomax) 0.4 mg PO BEDTIME [facility] Last Admin: 01/28/17 20:27 Dose: 0.4 mg Tiotropium [place] (Spiriva Handihaler) 18 mcg INH DAILY [facility] Last Admin: 01/28/17 10:11 Dose: 18 mcg Warfarin Sodium (Coumadin) 2 mg PO MoFr@1600 [facility] Last Admin: 01/28/17 16:46 Dose: 2 mg Warfarin Sodium (Coumadin) 4 mg PO SuTuWeThSa@1600 [facility] Warfarin Sodium (Coumadin Sliding Scale) 1 each PO ASDIRECTED [facility] Discontinued Medications Alprazolam (Xanax) 0.25 mg PO TID [facility] Last Admin: 01/28/17 11:06 Dose: Not Given Budesonide (Pulmicort) 0.5 mg INH BID [facility] Last Admin: 01/28/17 11:06 Dose: Not Given Patient's Own Medication 1 Each Perforomist 20 Mcg/2ml 1 each NEB BID [facility] Last Admin: 01/28/17 11:06 Dose: Not Given Polyethylene Glycol (Miralax) 17 gm PO DAILY [facility] Last Admin: 01/28/17 11:06 Dose: Not Given Prednisone (Prednisone) 20 mg PO WITHBREAKFAST [facility] Last Admin: 01/28/17 11:05 Dose: Not Given Simvastatin (Zocor) 40 mg PO BEDTIME [facility] Last Admin: 01/27/17 22:35 Dose: 40 mg - Exam General: alert, cooperative Neck: supple Lungs: Normal respiratory effort, Decreased breath sounds, Wheezing Cardiovascular: Regular Rate, No Murmurs Extremities: edema Psy/Mental Status: alert, normal mood - Problem List & Annotations (1) COPD (chronic obstructive pulmonary disease) SNOMED Code(s): 83032098 Code(s): J44.9 - CHRONIC OBSTRUCTIVE PULMONARY DISEASE, UNSPECIFIED Status : Acute Current Visit: No (2) Congestive cardiomyopathy SNOMED Code(s): 673214358 Code(s): I42.0 - DILATED CARDIOMYOPATHY Status: Acute Priority: High Current Visit: No (3) Afib SNOMED Code(s): 49262950 Code(s): I48.91 - UNSPECIFIED ATRIAL FIBRILLATION Status: Chronic Current Visit: No Qualifiers: (4) Long-term (current) use of anticoagulants SNOMED Code(s): 156588535 Code(s): Z79.01 - USP (CURRENT) USE OF ANTICOAGULANTS Status: Chronic Priority: Medium Current Visit: No (5) Physical deconditioning SNOMED Code(s): 22269867814800 Code(s): R53.81 - OTHER MALAISE Status: Chronic Priority: High Current Visit: No (6) Dementia SNOMED Code(s): 75298015 Code(s): F03.90 - UNSPECIFIED DEMENTIA WITHOUT BEHAVIORAL DISTURBANCE Status: Suspected Priority: Medium Current Visit: No (7) Palliative care status SNOMED Code(s): 383759312 Code(s): Z51.5 - ENCOUNTER FOR PALLIATIVE CARE Status: Acute Current Visit: Yes (8) Anemia SNOMED Code(s): 329260944 Code(s): D64.9 - ANEMIA, UNSPECIFIED Status: Acute Current Visit: Yes - Problem List Review Problem List Initiated/Reviewed/Updated: Yes - My Orders Last 24 Hours: My Active Orders 01/28/17 08:53 Daily Weight [Height and Weight] [RC] 07 01/28/17 09:15 Warfarin Sliding Scale [Coumadin Sliding Scale] 1 each PO ASDIRECTED 01/28/17 09:34 ALPRAZolam [Xanax] 0.25 mg PO TID PRN 01/28/17 10:34 Albuterol/Ipratropium [DuoNeb 3.0-0.5 MG/3 ML] 3 ml INH Q4H PRN 01/28/17 16:47 Sodium Chloride 0.9% [Saline Flush] 10 ml FLUSH ASDIRECTED PRN 01/30/17 09:15 INR,PT,PROTHROMBIN TIME [COAG] DAILY 01/31/17 09:15 INR,PT,PROTHROMBIN TIME [COAG] DAILY - Plan Plan:: 1. continue oxygen, breathing treatments. 2. DC Solu-Medrol start 60 mg of prednisone a day. 3. Keep oxygen saturations around 88-92% to help him not to retain CO2. 4. Check reticulocyte count, iron, ferritin to workup his anemia.
[2017-01-29] MEDS: ALPRAZolam 0.25 MG Tab PO PRN ×3 (07:57→20:22)
[2017-01-29] MEDS: Tiotropium Inhaler 18 MCG Inhalation Powder Cap Kit of 5 INH SCH (08:00)
[2017-01-29] MEDS: Calcium Carbonate/Vitamin D3 1250 MG-200 Unit Tab PO SCH (08:01)
[2017-01-29] MEDS: Aspirin 81 MG Tab.EC PO SCH (08:01)
[2017-01-29] MEDS: Spironolactone 25 MG Tab PO SCH (08:01)
[2017-01-29] MEDS: Polyethylene Glycol 3350 Powder 17 GM Packet PO SCH (08:02)
[2017-01-29] MEDS: Furosemide 40 MG Tab PO SCH (08:02)
[2017-01-29] MEDS: Multivitamin Tab PO SCH (08:04)
[2017-01-29] MEDS: Sertraline 100 MG Tab PO SCH ×2 (08:05→20:53)
[2017-01-29] MEDS ORDERED: predniSONE 20 MG Tab PO SCH (09:00)
[2017-01-29] MEDS ORDERED: Furosemide 40 MG/4 ML VIAL IVPUSH ONE (11:30)
[2017-01-29] MEDS ORDERED: Morphine 2 MG/ML Syringe IVPUSH PRN ×2 (11:30→11:31)
[2017-01-29] MEDS ORDERED: Furosemide 40 MG/4 ML VIAL ONE (11:33)
[2017-01-29] MEDS: Sodium Chloride 0.9% 10 ML Syringe FLUSH PRN ×3 (11:48→18:13)
[2017-01-29] MEDS: Morphine 2 MG/ML Syringe IVPUSH PRN ×5 (12:13→20:23)
[2017-01-29] MEDS ORDERED: Warfarin 4 MG Tab PO SCH (16:00)
--- NOTE | 2017-01-29 16:49 | PCM.SN ---
- Free Text/Narrative Note: Patient's had more difficulty breathing today. We again some morphine to keep him comfortable. I gave Lasix IV this afternoon 40 mg and he had 500 mL urinary output. Patient is about the same. His family a singing to him which is actually calm him down. I talked to his family and they just want to keep him comfortable. So continue the morphine and continue current care. I related to his nurse and the head nurse about comfort measures.
[2017-01-29] MEDS: Dutasteride 0.5 MG Cap PO SCH (20:53)
[2017-01-29] MEDS: Tamsulosin 0.4 MG Cap.ER PO SCH (20:53)
[2017-01-29] MEDS: Simvastatin 40 MG Tab PO SCH (20:53)
[2017-01-30] MEDS: Morphine 2 MG/ML Syringe IVPUSH PRN ×6 (02:22→11:57)
[2017-01-30] MEDS: Sodium Chloride 0.9% 10 ML Syringe FLUSH PRN ×8 (03:32→14:05)
[2017-01-30] MEDS: Albuterol/Ipratropium 3.0-0.5 MG/3 ML Neb Soln INH PRN (05:38)
[2017-01-30] MEDS: Albuterol/Ipratropium 3.0-0.5 MG/3 ML Neb Soln NEB SCH ×3 (08:07→16:35)
[2017-01-30] MEDS ORDERED: LORazepam 2 MG/ML MDV IVPUSH PRN (08:33)
[2017-01-30] MEDS ORDERED: Scopolamine 1.5 MG Transdermal Patch TRDERM PRN (08:34)
--- NOTE | 2017-01-30 08:40 | PCM.PN ---
- General Info Date of Service: 01/30/17 Admission Dx/Problem (Free Text): Patient sleeping. When I talked to him he woke up and said he is having some shortness of breath but feels a morphine and Xanax helped him. He is having some secretions and his daughter who is a pharmacist would like scopolamine patches. No fevers or chills. - Patient Data Vitals - most recent: Last Vital Signs Temp 97.5 F 01/30/17 08:00 Pulse 90 01/30/17 08:00 Resp 28 H 01/30/17 08:00 BP 107/64 01/29/17 23:48 Pulse Ox 85 L 01/30/17 08:00 Weight - most recent: 189 lb 1.6 oz I&O - last 24 hours: Intake & Output 01/29/17 01/30/17 01/30/17 22:59 06:59 14:59 Output Total 100 250 250 Balance -100 -250 -250 Med Orders - Current: Current Medications Albuterol/Ipratropium (Duoneb 3.0-0.5 Mg/3 Ml) 3 ml NEB QIDRT [facility] Last Admin: 01/30/17 08:07 Dose: Not Given Albuterol/Ipratropium (Duoneb 3.0-0.5 Mg/3 Ml) 3 ml INH Q4H PRN PRN Reason: SHORTNESS OF BREATH Last Admin: 01/30/17 05:38 Dose: 3 ml Morphine Sulfate (Morphine) 1 mg IVPUSH Q1H PRN PRN Reason: Anxiety Last Admin: 01/30/17 03:31 Dose: 1 mg Morphine Sulfate (Morphine) 2 mg IVPUSH Q1H PRN PRN Reason: Dyspnea Last Admin: 01/30/17 08:01 Dose: 2 mg Discontinued Medications Acetaminophen (Tylenol) 650 mg PO Q4H PRN PRN Reason: Pain (Mild 1-3)/fever Alprazolam (Xanax) 0.25 mg PO TID [facility] Last Admin: 01/28/17 11:06 Dose: Not Given Alprazolam (Xanax) 0.25 mg PO TID PRN PRN Reason: anxiety Last Admin: 01/29/17 20:22 Dose: 0.25 mg Aspirin (Halfprin) 81 mg PO DAILY [facility] Last Admin: 01/29/17 08:01 Dose: 81 mg Budesonide (Pulmicort) 0.5 mg INH BID [facility] Last Admin: 01/28/17 11:06 Dose: Not Given Budesonide (Pulmicort) 0.5 mg INH BIDRT [facility] Last Admin: 01/29/17 20:24 Dose: 0.5 mg Calcium Carbonate (Calcium Carbonate/Vitamin D 1250 Mg-200 Unit) 1 tab PO DAILY [facility] Last Admin: 01/29/17 08:01 Dose: 1 tab Docusate Sodium (Colace) 100 mg PO BID PRN PRN Reason: Constipation Dutasteride (Avodart) 0.5 mg PO BEDTIME [facility] Last Admin: 01/29/17 20:53 Dose: Not Given Ferrous Sulfate (Ferrous Sulfate) 325 mg PO BIDM [facility] Last Admin: 01/29/17 18:38 Dose: 325 mg Furosemide (Lasix) 40 mg PO DAILY [facility] Last Admin: 01/29/17 08:02 Dose: 40 mg Furosemide (Lasix) 40 mg IVPUSH NOW ONE Stop: 01/29/17 11:31 Last Admin: 01/29/17 11:43 Dose: 40 mg Furosemide (Lasix) Confirm Administered Dose 40 mg .ROUTE .STK-MED ONE Stop: 01/29/17 11:34 Last Admin: 01/29/17 11:49 Dose: Not Given Methylprednisolone Sodium Succinate (Solu-Medrol) 125 mg IVPUSH DAILY [facility] Last Admin: 01/28/17 09:47 Dose: 125 mg Morphine Sulfate (Morphine) 1 mg IVPUSH Q2H PRN PRN Reason: Anxiety Last Admin: 01/29/17 11:49 Dose: 1 mg Morphine Sulfate (Morphine) 2 mg IVPUSH Q2H PRN PRN Reason: Dyspnea Multivitamins/Minerals/Vitamin C (Tab-A-Jyothi) 1 tab PO DAILY [facility] Last Admin: 01/29/17 08:04 Dose: 1 tab Nitroglycerin (Nitrolingual) 0 gm TRLING Q5M PRN PRN Reason: Chest Pain Omeprazole (Omeprazole) 20 mg PO DAILY PRN PRN Reason: Heartburn Ondansetron HCl (Zofran Odt) 4 mg PO Q4H PRN PRN Reason: nausea, able to take PO Patient's Own Medication 1 Each Perforomist 20 Mcg/2ml 1 each NEB BID [facility] Last Admin: 01/28/17 11:06 Dose: Not Given Polyethylene Glycol (Miralax) 17 gm PO DAILY [facility] Last Admin: 01/28/17 11:06 Dose: Not Given Polyethylene Glycol (Miralax) 17 gm PO DAILY [facility] Last Admin: 01/29/17 08:02 Dose: 17 gm Prednisone (Prednisone) 20 mg PO WITHBREAKFAST [facility] Last Admin: 01/28/17 11:05 Dose: Not Given Prednisone (Prednisone) 60 mg PO DAILY [facility] Last Admin: 01/29/17 08:19 Dose: 60 mg Sertraline HCl (Zoloft) 100 mg PO BID [facility] Last Admin: 01/29/17 20:53 Dose: Not Given Simvastatin (Zocor) 40 mg PO BEDTIME [facility] Last Admin: 01/27/17 22:35 Dose: 40 mg Simvastatin (Zocor) 40 mg PO BEDTIME [facility] Last Admin: 01/29/17 20:53 Dose: Not Given Sodium Chloride (Saline Flush) 10 ml FLUSH ASDIRECTED PRN PRN Reason: Other Last Admin: 01/30/17 08:00 Dose: 10 ml Spironolactone (Aldactone) 25 mg PO DAILY [facility] Last Admin: 01/29/17 08:01 Dose: 25 mg Tamsulosin HCl (Flomax) 0.4 mg PO BEDTIME [facility] Last Admin: 01/29/17 20:53 Dose: Not Given Tiotropium [place] (Spiriva Handihaler) 18 mcg INH DAILY [facility] Last Admin: 01/29/17 08:00 Dose: 18 mcg Warfarin Sodium (Coumadin) 2 mg PO MoFr@1600 [facility] Last Admin: 01/28/17 16:46 Dose: 2 mg Warfarin Sodium (Coumadin) 4 mg PO SuTuWeThSa@1600 [facility] Last Admin: 01/29/17 16:23 Dose: 4 mg Warfarin Sodium (Coumadin Sliding Scale) 1 each PO ASDIRECTED [facility] - Exam General: sedated Neck: supple Lungs: Decreased breath sounds, Wheezing Cardiovascular: Regular Rate, No Murmurs, Irregular Rhythm Extremities: edema - Problem List & Annotations (1) COPD (chronic obstructive pulmonary disease) SNOMED Code(s): 43325288 Code(s): J44.9 - CHRONIC OBSTRUCTIVE PULMONARY DISEASE, UNSPECIFIED Status : Acute Current Visit: No (2) Congestive cardiomyopathy SNOMED Code(s): 910344441 Code(s): I42.0 - DILATED CARDIOMYOPATHY Status: Acute Priority: High Current Visit: No (3) Afib SNOMED Code(s): 06695861 Code(s): I48.91 - UNSPECIFIED ATRIAL FIBRILLATION Status: Chronic Current Visit: No Qualifiers: (4) Long-term (current) use of anticoagulants SNOMED Code(s): 668861281 Code(s): Z79.01 - [facility] (CURRENT) USE OF ANTICOAGULANTS Status: Chronic Priority: Medium Current Visit: No (5) Physical deconditioning SNOMED Code(s): 41156254765207 Code(s): R53.81 - OTHER MALAISE Status: Chronic Priority: High Current Visit: No (6) Dementia SNOMED Code(s): 97609851 Code(s): F03.90 - UNSPECIFIED DEMENTIA WITHOUT BEHAVIORAL DISTURBANCE Status: Suspected Priority: Medium Current Visit: No (7) Palliative care status SNOMED Code(s): 883853759 Code(s): Z51.5 - ENCOUNTER FOR PALLIATIVE CARE Status: Acute Current Visit: Yes (8) Anemia SNOMED Code(s): 142759891 Code(s): D64.9 - ANEMIA, UNSPECIFIED Status: Acute Current Visit: Yes - Problem List Review Problem List Initiated/Reviewed/Updated: Yes - My Orders Last 24 Hours: My Active Orders 01/29/17 09:00 predniSONE 60 mg PO DAILY 01/29/17 12:12 Morphine 1 mg IVPUSH Q1H PRN Morphine 2 mg IVPUSH Q1H PRN 01/30/17 08:32 Urinary Catheter Assessment [RC] QSHIFT Convert IV to Saline Lock [OM.PC] Routine 01/30/17 08:33 LORazepam [Ativan] 1 mg IVPUSH Q6H PRN 01/30/17 08:34 Scopolamine [Transderm-Scop] 1.5 mg TRDERM Q72H PRN 01/30/17 08:45 Burton Catheter Insertion [Insert Urinary Catheter] [OM.PC] Q24H 01/30/17 09:00 Furosemide [Lasix] 40 mg IVPUSH DAILY - Plan Plan:: 1. discussion with the family today and they would like to withdraw all lab draws and stop Coumadin. The only orders and plans. Comfort care is the direction the family and patient want to go. 2. Burton catheter for comfort for end-of-life. 3. Stop Coumadin, INR and all by mouth meds. 4. Scopolamine patch q. 72 hours to decrease secretions. 5. Style Xanax and start IV Ativan 1 mg every 6 hours when necessary anxiety. 6. They want to continue duo nebs 4 times a day and when necessary. 7. Morphine 2 mg IV when necessary, anxiety and pain. 8. Anticipate in the near future.
[2017-01-30] MEDS ORDERED: Furosemide 40 MG/4 ML VIAL IVPUSH SCH (09:00)
[2017-01-30] MEDS: Atropine 1% Ophth Soln 5 ML Bottle SL PRN ×4 (09:36→18:58)
[2017-01-30] MEDS: Budesonide 0.5 MG/2 ML Neb Susp INH SCH (16:05)
[2017-01-30 16:37] VITALS: BP 101/59
--- NOTE | 2017-01-31 08:17 | PCM.DCSUM1 ---
Discharge Summary - Hospital Course Free Text/Narrative:: summary-patient was admitted as described in the brief history. Initially given steroids. No signs of pneumonia. His x-ray showed that his CHF from last admission was improving. His legs were still swollen but improved. After the first day his breathing became worse. There was a discussion admission about him going to a alf and that he was not doing well at home. He was sent home from the hospital and survived an hour and then came back because of short of breath and anxious. Patient slowly got worse with his breathing. The family and the patient decided they did not want any extra measures. They asked for comfort measures. So we kept him comfortable and added morphine with his Xanax. We changed Xanax to Ativan IV. The third day of admission the patient's family wanted to withdraw all his medicines. Except for comfort medicines. All medicines were withdrawn except for morphine IV, scopolamine patch, atropine drops, Ativan. I did Lasix 40 mg IV to keep the fluids off his lungs to keep him comfortable. The patient comfortably in his room with all his family present. Cause of is end stage COPD. Brief History: This is an 82-year-old male patient with severe COPD, asthma and COPD was recently in the hospital in place and screening bed. He went home after being released to a swing bed for one hour and showed up again in the ER very anxious and short of breath. He states she's had some wheezing but no cough. He denies chest pain, fevers, chills. His leg swelling is better than it was before he was in the hospital. He says he had some panic. - Discharge Data Discharge Date: 01/31/17 Discharge Disposition: 20 Preliminary Cause of *Q: Respiratory failure Condition: - Discharge Diagnosis/Problem(s) (1) COPD (chronic obstructive pulmonary disease) SNOMED Code(s): 31507700 ICD Code: J44.9 - CHRONIC OBSTRUCTIVE PULMONARY DISEASE, UNSPECIFIED Status : Acute (2) Congestive cardiomyopathy SNOMED Code(s): 687809114 ICD Code: I42.0 - DILATED CARDIOMYOPATHY Status: Acute Priority: High (3) Afib SNOMED Code(s): 45225221 ICD Code: I48.91 - UNSPECIFIED ATRIAL FIBRILLATION Status: Chronic Qualifiers: (4) Long-term (current) use of anticoagulants SNOMED Code(s): 127354833 ICD Code: Z79.01 - USP (CURRENT) USE OF ANTICOAGULANTS Status: Chronic Priority: Medium (5) Physical deconditioning SNOMED Code(s): 67076602388287 ICD Code: R53.81 - OTHER MALAISE Status: Chronic Priority: High (6) Dementia SNOMED Code(s): 40671228 ICD Code: F03.90 - UNSPECIFIED DEMENTIA WITHOUT BEHAVIORAL DISTURBANCE Status: Suspected Priority: Medium (7) Palliative care status SNOMED Code(s): 334565790 ICD Code: Z51.5 - ENCOUNTER FOR PALLIATIVE CARE Status: Acute (8) Anemia SNOMED Code(s): 006273002 ICD Code: D64.9 - ANEMIA, UNSPECIFIED Status: Acute - Discharge Plan Prescriptions/Med Rec: LORazepam [Ativan] 0.5 mg PO BID #20 tablet Home Medications: Home Meds Albuterol Sulfate [Proair Hfa] 2 puff IH Q6H PRN 08/16/14 [History] Budesonide [Pulmicort] 0.5 mg IH BID 08/16/14 [History] Calcium Carbonate/Vitamin D3 [Calcium 600 + Vit D Tablet] 1 tab PO DAILY [History] Dutasteride [Avodart] 0.5 mg PO BEDTIME 08/16/14 [History] Ferrous Sulfate 324 mg PO BIDM 08/16/14 [History] Multivitamin [Multivitamins] 1 cap PO DAILY 08/16/14 [History] Nitroglycerin [Nitrolingual] 1 spray SL Q5M PRN 08/16/14 [History] Omeprazole [Prilosec] 20 mg PO DAILY PRN 08/16/14 [History] Simvastatin [Zocor] 40 mg PO BEDTIME 08/16/14 [History] Tamsulosin [Flomax] 0.4 mg PO BEDTIME 08/16/14 [History] Aspirin 81 mg PO DAILY 08/03/15 [History] Formoterol [Perforomist] 1 vial NEB BID 09/06/16 [History] Sertraline [Zoloft] 100 mg PO BID 09/06/16 [History] Tiotropium [Spiriva Handihaler] 1 cap INH DAILY 09/06/16 [History] Warfarin Sodium 2 mg PO MOFR 01/04/17 [History] Warfarin Sodium 4 mg PO SUTUWETHSA 01/04/17 [History] Albuterol [IJD: Albuterol] 2.5 mg NEB Q4H PRN #0 nebule 01/12/17 [Rx] Albuterol [IJD: Albuterol] 2.5 mg NEB QIDRT nebule 01/12/17 [Rx] Polyethylene Glycol 3350 [MiraLAX] 17 gm PO DAILY packet 01/12/17 [Rx] Furosemide [Lasix] 40 mg PO DAILY #30 tablet 01/27/17 [Rx] LORazepam [Ativan] 0.5 mg PO BID #20 tablet 01/27/17 [Rx] Prednisone [IJD: predniSONE] 20 mg PO WITHBREAKFAST #6 tablet 01/27/17 [Rx] Spironolactone [Aldactone] 25 mg PO DAILY #30 tablet 01/27/17 [Rx] Forms: ED Department Discharge Referrals: Barbara Schaffer [employer] [Primary Care Provider] - - Discharge Summary/Plan Comment DC Time >30 min.: No - Patient Data Vitals - Most Recent: Last Vital Signs Temp 97.3 F 01/30/17 16:25 Pulse 104 H 01/30/17 16:25 Resp 24 H 01/30/17 16:25 BP 101/59 L 01/30/17 16:25 Pulse Ox 86 L 01/30/17 16:25 Weight - Most Recent: 189 lb 1.6 oz I&O - Last 24 hours: Intake & Output 01/30/17 01/31/17 01/31/17 22:59 06:59 14:59 Output Total 650 Balance -650 Med Orders - Current: Current Medications Discontinued Medications Acetaminophen (Tylenol) 650 mg PO Q4H PRN PRN Reason: Pain (Mild 1-3)/fever Albuterol/Ipratropium (Duoneb 3.0-0.5 Mg/3 Ml) 3 ml NEB QIDRT [facility] Last Admin: 01/30/17 16:35 Dose: 3 ml Albuterol/Ipratropium (Duoneb 3.0-0.5 Mg/3 Ml) 3 ml INH Q4H PRN PRN Reason: SHORTNESS OF BREATH Last Admin: 01/30/17 05:38 Dose: 3 ml Alprazolam (Xanax) 0.25 mg PO TID [facility] Last Admin: 01/28/17 11:06 Dose: Not Given Alprazolam (Xanax) 0.25 mg PO TID PRN PRN Reason: anxiety Last Admin: 01/29/17 20:22 Dose: 0.25 mg Aspirin (Halfprin) 81 mg PO DAILY [facility] Last Admin: 01/29/17 08:01 Dose: 81 mg Atropine Sulfate (Isopto Atropine 1% Oph Soln) 0 ml SL Q2H PRN PRN Reason: Other Last Admin: 01/30/17 18:58 Dose: 4 drop Budesonide (Pulmicort) 0.5 mg INH BID [facility] Last Admin: 01/28/17 11:06 Dose: Not Given Budesonide (Pulmicort) 0.5 mg INH BIDRT [facility] Last Admin: 01/30/17 16:05 Dose: Not Given Calcium Carbonate (Calcium Carbonate/Vitamin D 1250 Mg-200 Unit) 1 tab PO DAILY [facility] Last Admin: 01/29/17 08:01 Dose: 1 tab Docusate Sodium (Colace) 100 mg PO BID PRN PRN Reason: Constipation Dutasteride (Avodart) 0.5 mg PO BEDTIME [facility] Last Admin: 01/29/17 20:53 Dose: Not Given Ferrous Sulfate (Ferrous Sulfate) 325 mg PO BIDM [facility] Last Admin: 01/30/17 16:06 Dose: Not Given Furosemide (Lasix) 40 mg PO DAILY [facility] Last Admin: 01/29/17 08:02 Dose: 40 mg Furosemide (Lasix) 40 mg IVPUSH NOW ONE Stop: 01/29/17 11:31 Last Admin: 01/29/17 11:43 Dose: 40 mg Furosemide (Lasix) Confirm Administered Dose 40 mg .ROUTE .STK-MED ONE Stop: 01/29/17 11:34 Last Admin: 01/29/17 11:49 Dose: Not Given Furosemide (Lasix) 40 mg IVPUSH DAILY [facility] Last Admin: 01/30/17 08:54 Dose: 40 mg Lorazepam (Ativan) 1 mg IVPUSH Q6H PRN PRN Reason: Anxiety Last Admin: 01/30/17 14:05 Dose: 1 mg Methylprednisolone Sodium Succinate (Solu-Medrol) 125 mg IVPUSH DAILY [facility] Last Admin: 01/28/17 09:47 Dose: 125 mg Morphine Sulfate (Morphine) 1 mg IVPUSH Q2H PRN PRN Reason: Anxiety Last Admin: 01/29/17 11:49 Dose: 1 mg Morphine Sulfate (Morphine) 2 mg IVPUSH Q2H PRN PRN Reason: Dyspnea Morphine Sulfate (Morphine) 1 mg IVPUSH Q1H PRN PRN Reason: Anxiety Last Admin: 01/30/17 03:31 Dose: 1 mg Morphine Sulfate (Morphine) 2 mg IVPUSH Q1H PRN PRN Reason: Dyspnea Last Admin: 01/30/17 11:57 Dose: 2 mg Multivitamins/Minerals/Vitamin C (Tab-A-Jyothi) 1 tab PO DAILY [facility] Last Admin: 01/29/17 08:04 Dose: 1 tab Nitroglycerin (Nitrolingual) 0 gm TRLING Q5M PRN PRN Reason: Chest Pain Omeprazole (Omeprazole) 20 mg PO DAILY PRN PRN Reason: Heartburn Ondansetron HCl (Zofran Odt) 4 mg PO Q4H PRN PRN Reason: nausea, able to take PO Patient's Own Medication 1 Each Perforomist 20 Mcg/2ml 1 each NEB BID [facility] Last Admin: 01/28/17 11:06 Dose: Not Given Polyethylene Glycol (Miralax) 17 gm PO DAILY [facility] Last Admin: 01/28/17 11:06 Dose: Not Given Polyethylene Glycol (Miralax) 17 gm PO DAILY [facility] Last Admin: 01/29/17 08:02 Dose: 17 gm Prednisone (Prednisone) 20 mg PO WITHBREAKFAST [facility] Last Admin: 01/28/17 11:05 Dose: Not Given Prednisone (Prednisone) 60 mg PO DAILY [facility] Last Admin: 01/29/17 08:19 Dose: 60 mg Scopolamine (Transderm-Scop) 1.5 mg TRDERM Q72H PRN PRN Reason: Congestion Last Admin: 01/30/17 08:50 Dose: 1.5 mg Sertraline HCl (Zoloft) 100 mg PO BID [facility] Last Admin: 01/29/17 20:53 Dose: Not Given Simvastatin (Zocor) 40 mg PO BEDTIME [facility] Last Admin: 01/27/17 22:35 Dose: 40 mg Simvastatin (Zocor) 40 mg PO BEDTIME [facility] Last Admin: 01/29/17 20:53 Dose: Not Given Sodium Chloride (Saline Flush) 10 ml FLUSH ASDIRECTED PRN PRN Reason: Other Last Admin: 01/30/17 08:00 Dose: 10 ml Sodium Chloride (Saline Flush) 10 ml FLUSH ASDIRECTED PRN PRN Reason: flush med Last Admin: 01/30/17 14:05 Dose: 10 ml Spironolactone (Aldactone) 25 mg PO DAILY [facility] Last Admin: 01/29/17 08:01 Dose: 25 mg Tamsulosin HCl (Flomax) 0.4 mg PO BEDTIME [facility] Last Admin: 01/29/17 20:53 Dose: Not Given Tiotropium [place] (Spiriva Handihaler) 18 mcg INH DAILY [facility] Last Admin: 01/29/17 08:00 Dose: 18 mcg Warfarin Sodium (Coumadin) 2 mg PO MoFr@1600 [facility] Last Admin: 01/28/17 16:46 Dose: 2 mg Warfarin Sodium (Coumadin) 4 mg PO SuTuWeThSa@1600 [facility] Last Admin: 01/29/17 16:23 Dose: 4 mg Warfarin Sodium (Coumadin Sliding Scale) 1 each PO ASDIRECTED [facility] *Q Meaningful Use (DIS) - VTE *Q VTE Criteria *Q: - Stroke *Q Stroke Criteria *Q: - AMI *Q AMI Criteria *Q:
== END 2017-01-30 19:30 | disposition expired | DRG 191 ==
LOC: FB.ED 15:06 → FB.MS 18:56 → OBSVTOIN 01-28 08:44
PROVIDERS: ADMIT Emergency Medicine; ATTEND Family Medicine
DX: J44.9 Chronic obstructive pulmonary disease, unspecified (principal); I42.0 Dilated cardiomyopathy; R09.02 Hypoxemia; I50.9 Heart failure, unspecified; I48.91 Unspecified atrial fibrillation; Z66 Do not resuscitate; Z51.5 Encounter for palliative care; G20 Parkinson's disease; F02.80 Dementia in other diseases classified elsewhere, unspecified severity, without behavioral disturbance, psychotic disturbance, mood disturbance, and anxiety; F40.8 Other phobic anxiety disorders; Z87.891 Personal history of nicotine dependence; Z99.81 Dependence on supplemental oxygen; Z79.01 Long term (current) use of anticoagulants; D64.9 Anemia, unspecified; I25.10 Atherosclerotic heart disease of native coronary artery without angina pectoris; F41.8 Other specified anxiety disorders; H54.7 Unspecified visual loss; H35.30 Unspecified macular degeneration; K59.09 Other constipation; Z95.1 Presence of aortocoronary bypass graft; Z95.5 Presence of coronary angioplasty implant and graft; H91.90 Unspecified hearing loss, unspecified ear; Z87.01 Personal history of pneumonia (recurrent); N40.0 Benign prostatic hyperplasia without lower urinary tract symptoms; M19.90 Unspecified osteoarthritis, unspecified site; Z79.52 Long term (current) use of systemic steroids
CPT/HCPCS: 36415; 94640; 99285; A9270 ×6; J7620 ×2; 71020; 80053; 82728; 83540; 83550; 83880; 84484; 85025; 85045; 85610; 93005; 99284; A4217; G0378; J1940; J2060; J2270; J2930; J7050